=== PATIENT | male | born 1960 | race Caucasian/White ===

== ENCOUNTER → 2016-02-23 | Outpatient (CLI) | payer OTHER ==
--- NOTE | 2016-02-23 11:26 | EKG ---
[address] [address] Measurements Intervals [place] Rate: 71 P: 73 ND: 180 QRS: 32 QRSD: 111 T: 69 QT: 419 QTc: 441 Interpretive Statements SINUS RHYTHM INTRAVENTRICULAR CONDUCTION DELAY No previous ECG available for comparison Electronically Signed On 02-23-16 17:57:22 MST by Daniel Jeff [email or web address]
[2016-02-23 11:40] LABS: HEMATOCRIT 41.6 % (42.0-52.0); HEMOGLOBIN 14.3 g/dL (14.0-18.0); MEAN CORPUSCULAR HEMOGLOBIN 31.3 PG (27-31); MEAN CORPUSCULAR HGB CONC 34.4 g/dL (33-37); MEAN PLATELET VOLUME 9.3 FL (7.4-12.2); RDW COEFFICIENT OF VARIATION 14.7 % (11.5-14.5); RED BLOOD COUNT 4.57 10^6/uL (4.70-6.10); WHITE BLOOD COUNT 5.71 10^3/uL (4.8-10.8)
[2016-02-23 11:46] LABS: BILIRUBIN,URINE NEGATIVE (NEG); CLARITY,URINE CLEAR (CLEAR); GLUCOSE, URINE (UA) NEGATIVE (NEG); LEUKOCYTE ESTERASE ,URINE TRACE (NEG); NITRATE,URINE NEGATIVE (NEG); OCCULT BLOOD,URINE NEGATIVE (NEG); PROTEIN,URINE NEGATIVE (NEG)
[2016-02-23 11:51] LABS: URINE SAMPLE TYPE VOIDED SPECIMEN
[2016-02-23 11:58] LABS: RBC,URINE 0-1 /hpf; SQUAMOUS EPITHELIAL CELL,UR FEW; WBC,URINE 0-2
[2016-02-23 12:41] LABS: BLOOD UREA NITROGEN 5 mg/dL (7-22); BUN/CREATININE RATIO 7.14 (6-20); CALCIUM 9.1 mg/dL (8.7-10.7); CHLORIDE 101 meq/L (98-112); CREATININE 0.7 mg/dL (0.70-1.50); EST GLOMERULAR FILTRATION > 60 (>60 ml/min/1.73m(2)); GLUCOSE 113 mg/dL (78-110); POTASSIUM 3.6 meq/L (3.8-5.2); SODIUM 137 meq/L (135-145)
== END ==
LOC: EKG 11:19
PROVIDERS: ATTEND Orthopaedic Surgery
DX: Z01.812 Encounter for preprocedural laboratory examination (principal); Z01.810 Encounter for preprocedural cardiovascular examination; M17.12 Unilateral primary osteoarthritis, left knee; I45.89 Other specified conduction disorders; F17.210 Nicotine dependence, cigarettes, uncomplicated
CPT/HCPCS: 36415; 80048; 81001; 85027; 86850; 87641; 93005; 93010

== ENCOUNTER → 2016-03-08 | Outpatient (CLI) | payer OTHER ==
--- NOTE | 2016-03-08 09:34 | EKG ---
[address] [address] Measurements Intervals [place] Rate: 73 P: 78 WA: 163 QRS: 55 QRSD: 106 T: 76 QT: 406 QTc: 432 Interpretive Statements SINUS RHYTHM Compared to ECG 02/23/2016 11:26:51 Intraventricular conduction delay no longer present Electronically Signed On 03-08-16 10:36:12 MST by Daniel Jeff [email or web address]
--- NOTE | 2016-03-08 13:05 | DI ---
PA /LATERAL CHEST X-RAY, 03/08/2016 11:46 AM : Clinical History: Emphysema. Previous Exam: None at this facility. There is no acute soft tissue or bony abnormality. Heart size is normal. Lungs are clear. Mediastinal structures are normal. There are no pulmonary nodules. Reading: Normal chest x-ray.
== END ==
LOC: MOB EKG 09:23
PROVIDERS: ATTEND Specialist
DX: Z01.810 Encounter for preprocedural cardiovascular examination (principal); Z01.818 Encounter for other preprocedural examination; M17.12 Unilateral primary osteoarthritis, left knee; J43.8 Other emphysema; F17.210 Nicotine dependence, cigarettes, uncomplicated
CPT/HCPCS: 71020; 93005; 93010

== ENCOUNTER → 2016-03-21 | Outpatient (CLI) | payer OTHER ==
[2016-03-21 14:52] LABS: BILIRUBIN,URINE SMALL (NEG); CLARITY,URINE CLEAR (CLEAR); GLUCOSE, URINE (UA) NEGATIVE (NEG); LEUKOCYTE ESTERASE ,URINE SMALL (NEG); NITRATE,URINE NEGATIVE (NEG); OCCULT BLOOD,URINE NEGATIVE (NEG); PROTEIN,URINE NEGATIVE (NEG)
[2016-03-21 15:03] LABS: URINE SAMPLE TYPE VOIDED SPECIMEN
== END ==
LOC: LAB 14:32
PROVIDERS: ATTEND Orthopaedic Surgery
DX: Z01.812 Encounter for preprocedural laboratory examination (principal); M17.0 Bilateral primary osteoarthritis of knee; F17.210 Nicotine dependence, cigarettes, uncomplicated
CPT/HCPCS: 81001; 86850; 86900; 86901

== ENCOUNTER 2016-03-22 08:41 | Inpatient (IN) | payer OTHER ==
[2016-03-22] MEDS ORDERED: Sodium Chloride 0.9% 200 ML IV ONE (09:07)
[2016-03-22] MEDS ORDERED: ceFAZolin Inj 2gm (Premix) 50 ML IV ONE (09:07)
[2016-03-22] MEDS ORDERED: LIDOCAINE W/ SODIUM BICARB 0.5 ML SYR ONE ×2 (09:07→11:37)
[2016-03-22] MEDS ORDERED: Lactated Ringers 1,000 ML PRIMARY IV ONE ×4 (09:07→15:23)
[2016-03-22] MEDS ORDERED: TRANEXAMIC ACID 1,000 MG / 10 ML VIAL ONE (09:07)
[2016-03-22] MEDS ORDERED: IPRATROPIUM/ALBUTEROL SULFATE 3 ML NEB NEB ONE (11:00)
[2016-03-22] MEDS ORDERED: BACITRACIN 50,000 UNIT VIAL IRRIG ONE (11:00)
[2016-03-22] MEDS ORDERED: BUPivacaine Liposome/PF (Exparel) Inj 20ml vial INFIL ONE ×2 (11:00→13:19)
[2016-03-22] MEDS ORDERED: Sodium Chloride 0.9% vial 60 ML ONE (11:00)
[2016-03-22] MEDS ORDERED: Sodium Chloride 0.9% 500 ML ONE (11:07)
[2016-03-22] MEDS ORDERED: LIDOCAINE 2%/ EPI 1:200,000 - 20 ML VIAL ONE (11:24)
[2016-03-22] MEDS ORDERED: BUPivacaine Inj 0.5% PF (5mg/ml) 30ml vial ONE (11:25)
[2016-03-22] MEDS ORDERED: DEXAMETHASONE SOD PHOSPHATE 4 MG/1 ML VIAL ONE (11:25)
[2016-03-22] MEDS ORDERED: MIDAZOLAM 5 MG/1 ML ONE ×2 (11:25→11:37)
[2016-03-22] MEDS ORDERED: fentaNYL Inj 250 MCG/5 ML VIAL ONE (11:25)
[2016-03-22] MEDS ORDERED: LIDOCAINE MPF 2% - 5 ML (20 MG/1 ML) ONE (11:50)
--- NOTE | 2016-03-22 11:55 | CRNA.PROCE ---
Nerve Block Documentation - - Type of Nerve Block Used: Left Sciatic Nerve Block Sedation Used - Enter Amount in Comment Field: Midazolam (mg): Yes (5mg), Fentanyl (mcg): Yes (50mcg) Skin Prep Used: ChloroPrep Draped: No Technique: Nerve Stimulator Nerve Block Needle Used: 80 mm ProBlk II Stimulation Hz: 2 Stimulation Staring mA: 1.4 Stimulation Ending mA: 0.44 Local Anesthetic - Enter Amt in Comment Field: 0.5 % Bupivacaine Plain (mL): Yes (15ml), 2 % Xylocaine with Epinephrine 1:200,000 (mL): Yes (10ml) Additives to Nerve Blocks: Dexamethasone (mL): Yes (4mg(1ml))
--- NOTE | 2016-03-22 12:00 | CRNA.PROCE ---
Nerve Block Documentation - - Type of Nerve Block Used: Left Femoral Nerve Block Position for Nerve Block: Supine Moniters Used During Block: EKG, SPO2, NIBP Sedation Used - Enter Amount in Comment Field: Fentanyl (mcg): Yes (50mcg) Skin Prep Used: ChloroPrep Draped: No Technique: Nerve Stimulator Nerve Block Needle Used: 40 mm ProBlk II Stimulation Hz: 2 Stimulation Staring mA: 1.2 Stimulation Ending mA: 0.44 Local Anesthetic - Enter Amt in Comment Field: 0.5 % Bupivacaine Plain (mL): Yes (15ml), 2 % Xylocaine with Epinephrine 1:200,000 (mL): Yes (10ml) Additives to Nerve Blocks: Dexamethasone (mL): Yes (4mg(1ml))
[2016-03-22] MEDS ORDERED: Ketorolac Inj 30 MG, Morphine Inj 5 MG, BUPivacaine Inj 0.25% PF 150 MG SPLASH ONE ×3 (12:45)
[2016-03-22] MEDS ORDERED: HYDROmorphone 2 MG/1 ML ONE (14:09)
[2016-03-22] MEDS ORDERED: NORMAL SALINE 10 ML SYRINGE FLUSH IVP PRN ×2 (15:41→17:47)
[2016-03-22] MEDS ORDERED: fentaNYL Inj 100 MCG/2 ML VIAL IVP PRN (15:41)
[2016-03-22] MEDS ORDERED: HYDROmorphone 2 MG/1 ML IVP PRN (15:41)
[2016-03-22] MEDS ORDERED: Nalbuphine Inj 20 MG/ML Ampule IVP PRN (15:41)
[2016-03-22] MEDS ORDERED: ONDANSETRON 4 MG/2 ML VIAL IVP PRN ×2 (15:41→17:47)
[2016-03-22] MEDS ORDERED: Lactated Ringers 1,000 ML PRIMARY IV SCH (15:45)
[2016-03-22] MEDS ORDERED: ALBUTEROL SULFATE 8.5 GM HFA INHALER INH PRN (17:47)
[2016-03-22] MEDS ORDERED: MORPHINE SULFATE 2 MG/1 ML IVP PRN (17:47)
[2016-03-22] MEDS ORDERED: MORPHINE SULFATE 10 MG/1 ML IV PRN (17:59)
[2016-03-22] MEDS ORDERED: MORPHINE SULFATE 4 MG/1 ML IV PRN (17:59)
[2016-03-22] MEDS ORDERED: MORPHINE SULFATE 2 MG/1 ML IV PRN (17:59)
--- NOTE | 2016-03-22 18:15 | CONSULT ---
Consult Note - Consult Consult Date: 03/22/16 Reason for Consult: PostOp Consulation : Ortho Primary Care Provider: [facility] - History of Present Illness History of Present Illness: This is a 55 years old male with medical history significant for history of COPD on oxygen at night, history of hepatitis C, osteoarthritis and hypothyroidism who came into the hospital to have surgery and had the surgery done by Dr. Miller on his left knee today. Hospitalist service were consulted for management of medical issues. Patient is denying symptoms there is no chest pain no nausea , little short of breath. No knee pain. Past Medical History Medical History: 1. Hypothyroidism. 2. COPD on oxygen at night. 3. Osteoarthritis. 4. History of hepatitis C Family History: Reviewed an Not Pertinent Past Social History: Used to drink, continue to smoke, smokes marijuana Tobacco Use: Current Every Day Smoker Substance Use Type: Marijuana Alcohol Use: Sober Review of Systems - Review of Systems All Systems: Reviewed & No Additional Complaints Except as Stated Medication / Allergies Home Medications: Home Medications Medication Instructions Recorded Confirmed Type Albuterol Neb Soln 0.021% 1 unit NEB BID unit 10/15/14 03/22/16 History Oxygen (O2) 1 l INH DAILY #2 unit 10/15/14 03/22/16 History Tiotropium [place] [Spiriva] 1 puff INH DAILY inh 10/15/14 03/22/16 History Cyclobenzaprine HCl [Flexeril] 10 mg PO QID 11/11/14 03/22/16 History Albuterol Sulfate [Ventolin Hfa] 1 - 2 puff INH PRN puff 07/15/15 03/22/16 History Levothyroxine Sodium 1 tab PO DAILY tab 07/15/15 03/22/16 History Mirtazapine [Remeron] 1 tab PO QHS tab 07/15/15 03/22/16 History Erythromycin Base [Erythromycin] 1 tab-cap PO TID #21 tab 03/08/16 03/21/16 Clinic Gabapentin 1 tab PO TID tab 03/08/16 03/22/16 History Tramadol HCl 1 tab PO Q8H PRN #50 tab 03/09/16 03/22/16 Clinic Allergies/Adverse Reactions: Allergies Allergy/AdvReac Type Severity Reaction Status Date / Time No Known Allergies Allergy Verified 03/23/16 06:28 Exam - Vitals Vital Signs: Vital Signs Temperature 97.8 F Temperature Source Temporal Artery Scan Pulse Rate [Pulse Oximeter] 86 Pulse Rate 90 Respiratory Rate 16 Blood Pressure [Right Arm] 141/93 Blood Pressure 149/83 Pulse Ox 94 Oxygen Flow Rate 3 Oxygen Flow Rate 4 Oxygen Delivery Method Nasal Cannula Height 6 ft 4 in Weight 178 lb - General General Appearance: POSITIVE: No Acute Distress, Thin - Head Head Exam: POSITIVE: Normal Inspection, Atraumatic - Eye Eye Exam: POSITIVE: Normal Appearance - ENT ENT Exam: POSITIVE: Normal Exam - Neck Neck Exam: POSITIVE: Normal Inspection - Respiratory Additional Respiratory Exam Details: Few expiratory wheezes. - Cardiovascular Cardiovascular Exam: POSITIVE: RRR - GI/Abdominal GI/Abdominal Exam: POSITIVE: Normal Bowel Sounds, Non Tender, Non Distended, Soft - Rectal Rectal Exam: POSITIVE: Deferred - External Exam: POSITIVE: Deferred - Extremities Additional Extremities Exam Details: Dressing applied to left knee - Back Back Exam: POSITIVE: Normal Inspection - Neurological Neurological Exam: POSITIVE: Alert - Psychiatric Psychiatric Exam: POSITIVE: Normal Mood - Integumentary Integumentary Exam: POSITIVE: Normal Color Results - Labs CBC and BMP: 03/23/16 05:43 03/23/16 05:43 Assessment and Plan - Patient Problems (1) S/P left unicompartmental knee replacement Current Visit: Yes Status: Acute Comment: Pain medication is written for him, PT and OT consulted. For DVT prophylaxis he will be on Lovenox. (2) Hypothyroidism Current Visit: Yes Status: Acute Comment: Same med (3) COPD (chronic obstructive pulmonary disease) Current Visit: Yes Status: Acute Comment: Continue his inhalers
[2016-03-22] MEDS: Lactated Ringers 1,000 ML PRIMARY IV SCH (18:17)
[2016-03-22] MEDS: CYCLOBENZAPRINE 10 MG TABLET PO SCH ×2 (18:47→20:53)
[2016-03-22] MEDS ORDERED: ALBUTEROL SULFATE 0.63 MG/3 ML NEB SCH (19:00)
[2016-03-22] MEDS: NICOTINE 21 MG /DAY PATCH TRANSDERM SCH (19:18)
[2016-03-22] MEDS: DOCUSATE 100 MG CAPSULE PO SCH (20:39)
[2016-03-22] MEDS: Mirtazapine Tab 15 MG TAB PO SCH (20:40)
[2016-03-22] MEDS: GABAPENTIN 300 MG CAPSULE PO SCH (20:40)
[2016-03-22] MEDS: ceFAZolin Inj 2gm (Premix) 2 GM in Dextrose 1 BAG IV SCH (20:41)
[2016-03-22] MEDS: ENOXAPARIN SODIUM 30 MG/0.3 ML SYRINGE SUBCUT SCH (20:41)
--- NOTE | 2016-03-22 21:21 | ORTHO.PROG ---
Last Taken Vital Signs: Vital Signs - Last Taken Temperature 97.8 F 03/22/16 20:13 Pulse Rate 68 03/22/16 20:13 Respiratory Rate 16 03/22/16 20:13 Blood Pressure 151/95 03/22/16 20:13 Pulse Ox 95 03/22/16 20:13 Subjective: Patient status post left unicompartmental knee replacement doing well no pain block is still in place patient sitting and edge of bed had tried to stand up and fell back into the bed. Objective: Dressing is clean and dry there is no active motor good pulses brisk refill. No sensory or active motor in the lower extremity on the left Intake and Output - 8hrs 03/21/16 03/22/16 03/22/16 03/22/16 21:59 05:59 13:59 21:59 Intake: IV 2200 800 Output: Output, Urine Amount 325 125 Output, Estimated Blood 75 Loss Amount Other: Weight 80.739 kg 80.739 kg Weight Measurement Method Standing Scale Assessment: Left unicompartmental knee replacement Plan: Pain control is doing well with the femoral and sciatic nerve blocks, absolutely no weightbearing on the left leg when he is op mobilizing he needs to have a knee immobilizer in place and maximum assistance Pneumatic sequentials tonight and start Lovenox in a.m.
[2016-03-22] MEDS: HYDROcodone-APAP 10 MG-325 MG TABLET PO PRN (23:35)
[2016-03-23] MEDS: ceFAZolin Inj 2gm (Premix) 2 GM in Dextrose 1 BAG IV SCH (05:29)
[2016-03-23] MEDS: LEVOTHYROXINE 75 MCG TABLET PO SCH (06:02)
[2016-03-23] MEDS: Lactated Ringers 1,000 ML PRIMARY IV SCH (06:30)
[2016-03-23 06:37] LABS: HEMATOCRIT 37.5 % (42.0-52.0); HEMOGLOBIN 12.7 g/dL (14.0-18.0); MEAN CORPUSCULAR HEMOGLOBIN 30.9 PG (27-31); MEAN CORPUSCULAR HGB CONC 33.9 g/dL (33-37); MEAN PLATELET VOLUME 9.7 FL (7.4-12.2); RDW COEFFICIENT OF VARIATION 14.2 % (11.5-14.5); RED BLOOD COUNT 4.11 10^6/uL (4.70-6.10); WHITE BLOOD COUNT 9.01 10^3/uL (4.8-10.8)
[2016-03-23 06:56] LABS: BLOOD UREA NITROGEN 8 mg/dL (7-22); BUN/CREATININE RATIO 11.42 (6-20); CALCIUM 8.7 mg/dL (8.7-10.7); CHLORIDE 105 meq/L (98-112); CREATININE 0.7 mg/dL (0.70-1.50); EST GLOMERULAR FILTRATION > 60 (>60 ml/min/1.73m(2)); GLUCOSE 98 mg/dL (78-110); POTASSIUM 4.3 meq/L (3.8-5.2); SODIUM 138 meq/L (135-145)
[2016-03-23] MEDS: ALBUTEROL SULFATE 2.5 MG/3 ML NEB SCH (06:56)
[2016-03-23] MEDS: TIOTROPIUM BROMIDE 18 MCG CAPSULE INH SCH (06:57)
--- NOTE | 2016-03-23 07:41 | ORTHO.PROG ---
Last Taken Vital Signs: Vital Signs - Last Taken Temperature 97.7 F 03/23/16 05:00 Pulse Rate 76 03/23/16 05:00 Respiratory Rate 20 03/23/16 05:00 Blood Pressure 130/87 03/23/16 05:00 Pulse Ox 92 03/23/16 05:00 Subjective: Doing well this morning no pain Objective: Left leg no active motion block still in place. Good pulses brisk refill dressing clean and dry. Intake and Output - 8hrs 03/22/16 03/22/16 03/23/16 03/23/16 13:59 21:59 05:59 13:59 Intake: IV 2200 800 1110 Intake Oral Amount 100 Output: Output, Urinary Catheter 500 Amount Output, Urine Amount 325 125 Output, Estimated Blood 75 Loss Amount Other: Weight 80.739 kg 80.739 kg Weight Measurement Method Standing Scale Laboratory Results 03/23/16 Range/Units 05:43 WBC 9.01 (4.8-10.8) 10^3/uL RBC 4.11 L (4.70-6.10) 10^6/uL Hgb 12.7 L (14.0-18.0) g/dL Hct 37.5 L (42.0-52.0) % MCV 91.2 H (80-90) FL MCH 30.9 (27-31) PG MCHC 33.9 (33-37) g/dL RDW Std Deviation 46.0 (39-50) fL RDW Coeff of Mansi 14.2 (11.5-14.5) % Plt Count 125 L (140-350) 10*3/uL MPV 9.7 (7.4-12.2) FL Sodium 138 (135-145) meq/L Potassium 4.3 (3.8-5.2) meq/L Chloride 105 (98-112) meq/L Carbon Dioxide 28 (23-33) meq/L Anion Gap 5 (5-20) BUN 8 (7-22) mg/dL Creatinine 0.7 (0.70-1.50) mg/dL Estimated GFR > 60 (>60 ml/min/1.73m(2)) BUN/Creatinine Ratio 11.42 (6-20) Glucose 98 (78-110) mg/dL Calculated Osmolality 283.0 (267-292) mOsm/kg Calcium 8.7 (8.7-10.7) mg/dL Assessment: Status post left unicompartmental knee replacement doing well Plan: Patient will continue with DVT prophylaxis with enoxaparin, begin physical therapy today but to be extremely careful since his sciatic and femoral nerve block are in place. Pain control
[2016-03-23] MEDS: ENOXAPARIN SODIUM 30 MG/0.3 ML SYRINGE SUBCUT SCH ×2 (08:10→20:44)
[2016-03-23] MEDS: GABAPENTIN 300 MG CAPSULE PO SCH ×3 (08:11→20:44)
[2016-03-23] MEDS: DOCUSATE 100 MG CAPSULE PO SCH ×2 (08:11→20:44)
[2016-03-23] MEDS: CYCLOBENZAPRINE 10 MG TABLET PO SCH ×4 (08:11→20:44)
[2016-03-23] MEDS: HYDROcodone-APAP 10 MG-325 MG TABLET PO PRN ×3 (08:12→18:52)
[2016-03-23] MEDS ORDERED: OXYGEN INH SCH (09:00)
[2016-03-23] MEDS ORDERED: ERYTHROMYCIN 250 MG PO SCH (09:00)
--- NOTE | 2016-03-23 09:37 | DI ---
XR KNEE 1 OR 2 VWS,03/22/2016 5:02 PM: Clinical History: Left knee osteoarthritis. Previous Exam: January 25, 2016 Findings: AP and lateral views of the left knee are obtained, and demonstrate postsurgical changes consistent w ith a left medial compartment hemiarthroplasty. There is some free air noted within the suprapatellar bursa and the knee joint effusion. Overlying bandaging is noted as well. Impression: Status post left medial hemiarthroplasty.
--- NOTE | 2016-03-23 12:36 | CRNA.PROGR ---
Anesthesia Note Anesthesia Progress Note: Post OP Anesthesia Note Pt is sitting up in chair at bedside. He has been up to restroom, cedillo is dc' d and he has no problems voiding. He is tolerating a regular diet. He denies any residual issues of anesthetic. Current VS are stable. Vital Signs (Last 8 hours) Temp Pulse Resp BP Pulse Ox 03/23/16 11:32 98.2 F 102 H 20 139/84 91 03/23/16 07:48 98.5 F 92 18 143/96 90 03/23/16 05:00 97.7 F 76 20 130/87 92
--- NOTE | 2016-03-23 12:49 | PDOC(PROG) ---
Date and Time of Service: 03/23/2016 12:48 PM Interval History: Subjective Patient feels better pain seems to be controlled denying symptoms. Objective : Data - Labs CBC and BMP: 03/23/16 05:43 03/23/16 05:43 Labs - Last 24 Hours: Laboratory Results 03/23/16 Range/Units 05:43 WBC 9.01 (4.8-10.8) 10^3/uL RBC 4.11 L (4.70-6.10) 10^6/uL Hgb 12.7 L (14.0-18.0) g/dL Hct 37.5 L (42.0-52.0) % MCV 91.2 H (80-90) FL MCH 30.9 (27-31) PG MCHC 33.9 (33-37) g/dL RDW Std Deviation 46.0 (39-50) fL RDW Coeff of Mansi 14.2 (11.5-14.5) % Plt Count 125 L (140-350) 10*3/uL MPV 9.7 (7.4-12.2) FL Sodium 138 (135-145) meq/L Potassium 4.3 (3.8-5.2) meq/L Chloride 105 (98-112) meq/L Carbon Dioxide 28 (23-33) meq/L Anion Gap 5 (5-20) BUN 8 (7-22) mg/dL Creatinine 0.7 (0.70-1.50) mg/dL Estimated GFR > 60 (>60 ml/min/1.73m(2)) BUN/Creatinine Ratio 11.42 (6-20) Glucose 98 (78-110) mg/dL Calculated Osmolality 283.0 (267-292) mOsm/kg Calcium 8.7 (8.7-10.7) mg/dL Objective : Exam - General General Appearance: No Acute Distress, Cooperative - Head Head Exam: Normal Inspection - Eye Eye Exam: Normal Appearance - ENT ENT Exam: Normal Exam - Neck Neck Exam: Normal Inspection - Respiratory Respiratory Exam: Clear to Auscultation - Bilaterally - Cardiovascular Cardiovascular Exam: RRR - GI/Abdominal GI/Abdominal Exam: Normal Bowel Sounds, Non Tender, Non Distended, Soft - Rectal Rectal Exam: Deferred - Extremities Additional Extremities Exam Details: Dressing applied to the left knee - Back Back Exam: Normal Inspection - Neurological Neurological Exam: Alert, Oriented x 3, CN II-XII Intact - Psychiatric Psychiatric Exam: Normal Affect - Integumentary Integumentary Exam: Normal Color Assessment and Plan - Patient Problems (1) S/P left unicompartmental knee replacement Current Visit: Yes Status: Acute Comment: Continue PT and OT, for DVT prophylaxis he is on Lovenox (2) Hypothyroidism Current Visit: Yes Status: Acute Comment: Same med (3) COPD (chronic obstructive pulmonary disease) Current Visit: Yes Status: Acute Comment: Same medications
[2016-03-23] MEDS: NICOTINE 21 MG /DAY PATCH TRANSDERM SCH (18:53)
[2016-03-23] MEDS ORDERED: Patch Removal PATCH TRANSDERM SCH (19:00)
[2016-03-23] MEDS: Mirtazapine Tab 15 MG TAB PO SCH (20:44)
[2016-03-24] MEDS: HYDROcodone-APAP 10 MG-325 MG TABLET PO PRN ×3 (01:52→13:16)
[2016-03-24 05:00] VITALS: RESP 18
[2016-03-24] MEDS: LEVOTHYROXINE 75 MCG TABLET PO SCH (06:09)
[2016-03-24 06:20] LABS: HEMATOCRIT 32.1 % (42.0-52.0); HEMOGLOBIN 10.7 g/dL (14.0-18.0); MEAN CORPUSCULAR HEMOGLOBIN 30.6 PG (27-31); MEAN CORPUSCULAR HGB CONC 33.3 g/dL (33-37); MEAN PLATELET VOLUME 9.7 FL (7.4-12.2); RDW COEFFICIENT OF VARIATION 14.4 % (11.5-14.5); RED BLOOD COUNT 3.5 10^6/uL (4.70-6.10); WHITE BLOOD COUNT 5.54 10^3/uL (4.8-10.8)
[2016-03-24] MEDS: TIOTROPIUM BROMIDE 18 MCG CAPSULE INH SCH (06:27)
[2016-03-24] MEDS: ALBUTEROL SULFATE 2.5 MG/3 ML NEB SCH (06:27)
[2016-03-24 06:39] LABS: BLOOD UREA NITROGEN 10 mg/dL (7-22); CALCIUM 8.2 mg/dL (8.7-10.7); CHLORIDE 108 meq/L (98-112); CREATININE 0.8 mg/dL (0.70-1.50); EST GLOMERULAR FILTRATION > 60 (>60 ml/min/1.73m(2)); GLUCOSE 89 mg/dL (78-110); POTASSIUM 3.8 meq/L (3.8-5.2); SODIUM 140 meq/L (135-145)
--- NOTE | 2016-03-24 07:46 | ORTHO.PROG ---
Last Taken Vital Signs: Vital Signs - Last Taken Temperature 98.4 F 03/24/16 06:44 Pulse Rate 90 03/24/16 06:44 Respiratory Rate 18 03/24/16 06:44 Blood Pressure 133/64 03/24/16 06:44 Pulse Ox 90 03/24/16 06:44 Subjective: Patient doing well this morning good pain control block is wearing off almost completely worn off Objective: Examination shows the incision is clean and dry block has worn off where he has good eversion dorsiflexion plantar flexion of the foot. Sensory exam seems regarding lower extremity knee motion is still a little limited. Intake and Output - 8hrs 03/23/16 03/23/16 03/24/16 03/24/16 13:59 21:59 05:59 13:59 Intake: Intake Oral Amount 240 350 500 620 Output: Output, Urine Amount 500 500 450 Other: Percent Meal Consumed 100% 100% 75% Weight 83.325 kg Weight Measurement Method Standing Scale Laboratory Results 03/24/16 Range/Units 05:36 WBC 5.54 (4.8-10.8) 10^3/uL RBC 3.50 L (4.70-6.10) 10^6/uL Hgb 10.7 L (14.0-18.0) g/dL Hct 32.1 L (42.0-52.0) % MCV 91.7 H (80-90) FL MCH 30.6 (27-31) PG MCHC 33.3 (33-37) g/dL RDW Std Deviation 46.6 (39-50) fL RDW Coeff of Mansi 14.4 (11.5-14.5) % Plt Count 100 L (140-350) 10*3/uL MPV 9.7 (7.4-12.2) FL Sodium 140 (135-145) meq/L Potassium 3.8 (3.8-5.2) meq/L Chloride 108 (98-112) meq/L Carbon Dioxide 28 (23-33) meq/L Anion Gap 4 L (5-20) BUN 10 (7-22) mg/dL Creatinine 0.8 (0.70-1.50) mg/dL Estimated GFR > 60 (>60 ml/min/1.73m(2)) BUN/Creatinine Ratio 12.50 (6-20) Glucose 89 (78-110) mg/dL Calculated Osmolality 287.0 (267-292) mOsm/kg Calcium 8.2 L (8.7-10.7) mg/dL Assessment: Status post left unicompartmental knee replacement Anemia Plan: Continue with physical therapy and occupational therapy. Pain control seems to be good DVT prophylaxis currently with Lovenox I will switches are also 1 patient goes home.
[2016-03-24] MEDS: GABAPENTIN 300 MG CAPSULE PO SCH (08:14)
[2016-03-24] MEDS: DOCUSATE 100 MG CAPSULE PO SCH (08:14)
[2016-03-24] MEDS: CYCLOBENZAPRINE 10 MG TABLET PO SCH ×2 (08:14→13:16)
[2016-03-24] MEDS: ENOXAPARIN SODIUM 30 MG/0.3 ML SYRINGE SUBCUT SCH (08:14)
--- NOTE | 2016-03-24 10:07 | PT.PROG ---
Progress Note Progress Note: S: Pt reports that he has a constant "annoying" posterior knee "pull". States things are not unbearable but is noticeable. O: Treatment consisted of: 20' MH to L knee followed by micro massage, HS/QS, SLR, hip abduction, SAQ all 0# x10, STS 10x, 3# box, negotiated 5 staires with 1 HR and walker with only S. Pt's incision site was clean, min drainage with [id number] blister at the 7 O'clock position starting at inferior portion of incision. A: Pt tolerated treatment well, able to complete all activities with only S, no c/o pain. P: Continue POC to address established goals and objectives.
[2016-03-24 11:12] VITALS: TEMP 98.2
--- NOTE | 2016-03-24 13:40 | DCSUMMARY ---
Hospitalization Summary Admit Date: 03/22/16 Discharge Date: 03/24/16 Hospital Course: Discharge instruction 1. Status post left unicompartmental knee replacement 2. History of hepatitis C 3. History of COPD 4. History of hypothyroidism 5. Mild thrombocytopenia Hospital course This is a 55 years old male with medical history significant for history of COPD on oxygen at night, history of hepatitis C, osteoarthritis and hypothyroidism who came into the hospital to have surgery and had left unicompartmental knee replacement done by Dr. Miller. The hospitalist service were consulted for management of his medical issues. We kept him on his usual medications. Postoperative course was uneventful he started physical therapy. On the day of discharge Dr. Miller suggested to discharge him after physical therapy and he was cleared by them so he was discharged. Dr. Grace put him on Xarelto and he wrote prescription for pain medications. Patient will follow-up with Dr. Miller postdischarge. Patient did have mild thrombocytopenia suspect this may be due to his underlying hepatitis C. Laboratory Results 03/23/16 03/24/16 Range/Units 05:43 05:36 WBC 9.01 5.54 (4.8-10.8) 10^3/uL RBC 4.11 L 3.50 L (4.70-6.10) 10^6/uL Hgb 12.7 L 10.7 L (14.0-18.0) g/dL Hct 37.5 L 32.1 L (42.0-52.0) % MCV 91.2 H 91.7 H (80-90) FL MCH 30.9 30.6 (27-31) PG MCHC 33.9 33.3 (33-37) g/dL RDW Std Deviation 46.0 46.6 (39-50) fL RDW Coeff of Mansi 14.2 14.4 (11.5-14.5) % Plt Count 125 L 100 L (140-350) 10*3/uL MPV 9.7 9.7 (7.4-12.2) FL Sodium 138 140 (135-145) meq/L Potassium 4.3 3.8 (3.8-5.2) meq/L Chloride 105 108 (98-112) meq/L Carbon Dioxide 28 28 (23-33) meq/L Anion Gap 5 4 L (5-20) BUN 8 10 (7-22) mg/dL Creatinine 0.7 0.8 (0.70-1.50) mg/dL Estimated GFR > 60 > 60 (>60 ml/min/1.73m(2)) BUN/Creatinine Ratio 11.42 12.50 (6-20) Glucose 98 89 (78-110) mg/dL Calculated Osmolality 283.0 287.0 (267-292) mOsm/kg Calcium 8.7 8.2 L (8.7-10.7) mg/dL Discharge instruction Diet regular Activity as started Medications Home Medications Home Medications Albuterol Neb Soln 0.021% 1 unit NEB BID unit 10/15/14 [History Confirmed 03/22] Oxygen (O2) 1 l INH DAILY #2 unit 10/15/14 [History Confirmed 03/22/16] Tiotropium [place] [Spiriva] 1 puff INH DAILY inh 10/15/14 [History Confirmed 03/22/16] Cyclobenzaprine HCl [Flexeril] 10 mg PO QID 11/11/14 [History Confirmed 03/22/16 ] Albuterol Sulfate [Ventolin Hfa] 1 - 2 puff INH PRN puff 07/15/15 [History Confirmed 03/22/16] Levothyroxine Sodium 1 tab PO DAILY tab 07/15/15 [History Confirmed 03/22/16] Mirtazapine [Remeron] 1 tab PO QHS tab 07/15/15 [History Confirmed 03/22/16] Erythromycin Base [Erythromycin] 1 tab-cap PO TID #21 tab 03/08/16 [Clinic Confirmed 03/21/16] Gabapentin 1 tab PO TID tab 03/08/16 [History Confirmed 03/22/16] Tramadol HCl 1 tab PO Q8H PRN #50 tab 03/09/16 [Clinic Confirmed 03/22/16] HYDROcodone/APAP 10/325 Tab [[place] 10/325 Tab] 1 - 2 tab PO Q4H PRN #1 tab 10/30 [Rx] Xarelto 10 mg daily Condition at discharge was stable for discharge Follow-up with the Dr. Miller as scheduled, with PCP 1-2 weeks Exam - Vitals Vital Signs: Vital Signs Temperature 98.2 F Temperature Source Temporal Artery Scan Pulse Rate [Pulse Oximeter] 97 Pulse Rate 90 Respiratory Rate 18 Blood Pressure [Right Arm] 149/85 Blood Pressure 149/83 Pulse Ox 92 Oxygen Flow Rate 1 Oxygen Flow Rate 4 Oxygen Delivery Method Room Air Height 6 ft 4 in Weight 183 lb - General General Appearance: POSITIVE: No Acute Distress, Thin - Head Head Exam: POSITIVE: Normal Inspection - Eye Eye Exam: POSITIVE: Normal Appearance - ENT ENT Exam: POSITIVE: Normal Exam - Neck Neck Exam: POSITIVE: Normal Inspection - Respiratory Respiratory Exam: POSITIVE: Clear to Auscultation - Bilaterally - Cardiovascular Cardiovascular Exam: POSITIVE: RRR Patient Problems - Patient Problem List (1) S/P left unicompartmental knee replacement Status: Acute (2) Hypothyroidism Status: Acute (3) COPD (chronic obstructive pulmonary disease) Status: Acute
--- NOTE | 2016-03-25 15:40 | PTI REPORT ---
Thank you for the referral of Joselito Sampson. He was seen on 03/23/16 for an inpatient evaluation status post left knee shantel arthroplasty. SUBJECTIVE: The patient is a 55-year-old male who was referred by Dr. Miller secondary to a shantel arthroplasty of the left knee. The patient states he lives in [place] with his sister. There are three steps to get in and out of his house. PAST MEDICAL HISTORY: Past medical history can be found in the patient's medical record. OBJECTIVE FINDINGS: General observations: The patient was in his room upon the therapist's arrival. He was alert and oriented x3. Pain: The patient rates his pain as a 6/10 on the verbal analog scale (0=no pain , 10=worst pain) but his foot is completely numb. Bed mobility: The patient requires assist of one to come from a supine to sit position due to nauseousness and numbness. Transfers: The patient requires assist of one to transfer from sit to stand due to numbness of the foot. Ambulation: The patient ambulated two or three steps to his chair. Range of motion: The patient demonstrated 80-85 degrees of knee flexion. ASSESSMENT: The patient's prognosis for rehab is great and his attitude is very good. Problem List: Pain in the left knee Decreased passive and active range of motion of the left knee Decreased strength in the left knee Short-Term Goals: To be met by discharge from inpatient: Patient will be able to transfer from bed to stand independently. Patient will be able to ambulate 100 feet with walker, weight-bearing as tolerated. Patient will be able to ascend and descend five stairs with walker, weight- bearing as tolerated. Patient will be instructed in a home exercise and stretching program. Long-Term Goals: To be met following discharge from inpatient: Patient will be seen by outpatient physical therapy. TREATMENT PLAN: Patient will be seen B.I.D during the week and one time per day over the weekend as an inpatient for pain relief modalities, transfers, ambulation, stairs, and ADLs. INITIAL TREATMENT: Treatment today consisted of the initial evaluation activities only. RENETTA
--- NOTE | 2016-03-25 15:49 | PT PM DAY ---
Diagnosis : Left Knee Jarad-Arthroplasty PM - Physical Therapy S: The patient says he still can't feel his foot and can't lift his leg. Other than that, he states he feels great. O: The patient ambulates through the hallway with walker and knee immobilizer on. The patient was then wheeled down to therapy where he received an application of moist heat pack x20 minutes including set up to the left knee. He performed therapeutic exercises and functional activities including quad sets, heel slides, straight leg raises, short arc quads, hip abduction/ adduction, sit to stands with knee immobilizer on, and box step ups on the #2 box. The patient then received manual therapy in the form of passive range of motion in knee flexion/extension and stretching of his lower extremity with some gentle rhythmic rotations and traction for pain relief. The patient then ambulated approximately 20 feet with walker and contact guard assist. The patient then performed the upper body ergometer x5 minutes. The patient then ambulated another approximately 20 feet with walker and contact guard assist. He was then wheeled back up to his room where he was left with call light within reach. A: The patient is very impulsive. He is younger, so he feels like he does not have to be as safe. He did require several verbal cues in order to transfer safely and use his walker correctly. His motion is excellent and he is getting good quad control back. P: Continue seeing patient BID during the week and one time per day over the weekend for transfers, ambulation, and range of motion/strengthening exercises. RENETTA
--- NOTE | 2016-03-25 16:02 | OTI REPORT ---
Thank you for the referral of Joselito Sampson. He was seen on 03/24/16 for an occupational therapy inpatient evaluation status post left knee shantel arthroplasty. SUBJECTIVE: The patient is a 55-year-old male who had a left knee shantel arthroplasty complete on Monday. The patient does live in [place] with his significant other in a trailer house. He states he does have a couple of stairs to get into his home, but once inside he has no stairs. He states he has a high rise toilet seat as well as a shower seat already installed in his shower. At this time the patient is on disability and is not working. The patient did report that he has poor shoulders. He states he does need surgery on the left shoulder again and he states his right shoulder is not great. PAST MEDICAL HISTORY: Past medical history can be found in the patient's medical record. OBJECTIVE FINDINGS: Range of motion: The patient demonstrates approximately 100 degrees of shoulder range of motion before he started feeling pain and a pinching sensation in the shoulder. Strength: The patient demonstrates upper extremity strength of 4/5. Bed mobility: The patient was able to complete bed mobility with mod independence with his knee immobilizer on. Activities of daily living: The patient was able to doff and don his sock mod independently. The patient states he would like a hospital nurse so that he can moss picker items off the floor easier. Transfers: The patient is able to transfer from sit to stand with mod independence; he was a little impulsive and fast with his movements; however, he does seem to handle it fairly well. Ambulation: The patient was able to ambulate approximately 100 feet before physical therapy services took over. ASSESSMENT: At this time the patient is completing all ADLs with mod independence. The patient was issued a hospital nurse and at this time he will be discharged from OT services. TREATMENT PLAN: Patient will be discharged from OT services at this time. INITIAL TREATMENT: Treatment today consisted of the initial evaluation activities only. RENETTA
== END 2016-03-24 13:26 | disposition home or self-care (01) | DRG 470 ==
LOC: OPS 08:41 → MED/SURG 17:40
PROVIDERS: ADMIT Orthopaedic Surgery; ATTEND Orthopaedic Surgery
PROC: 0SRD0L9 Replacement of Left Knee Joint with Medial Unicondylar Synthetic Substitute, Cemented, Open Approach (ICD-10-PCS; principal; 2016-03-22 13:00)
DX: M17.12 Unilateral primary osteoarthritis, left knee (principal); B18.2 Chronic viral hepatitis C; J44.9 Chronic obstructive pulmonary disease, unspecified; D69.6 Thrombocytopenia, unspecified; E03.8 Other specified hypothyroidism
CPT/HCPCS: 36415; 73560; 80048; 85027; 94640; 94761; 97010; 97110; 97116; 97140; 97162; 97165; 97530; A4216; J0690; J1100; J1170; J1650; J1885; J2001; J2250; J2270; J3010; J3490; J7040; J7050; J7120; J7620; S0020

== ENCOUNTER 2016-03-29 11:31 | Emergency (ER) | payer OTHER ==
[2016-03-29] MEDS ORDERED: Sodium Chloride 0.9% 1,000 ML PRIMARY IV ONE (11:45)
[2016-03-29] MEDS ORDERED: ONDANSETRON 4 MG/2 ML VIAL IVP ONE (11:45)
[2016-03-29] MEDS ORDERED: KETOROLAC 30 MG/1 ML VIAL IVP ONE (11:45)
[2016-03-29 11:54] VITALS: RESP 16; TEMP 98
--- NOTE | 2016-03-29 11:57 | PDOC ---
Lower Extremity Injury HPI - General Chief Complaint: Lower Extremity Problem/Injury Stated Complaint: LEFT KNEE SURGICAL INCISION PAIN/BLISTERING Date Seen by Provider: 03/29/16 Time Seen by Provider: 11:52 Source: POSITIVE: Patient Exam Limitations: POSITIVE: No limitations Nurse's Notes Reviewed & Considered: Yes - History of Present Illness Initial Comments: Patient comes in today with chief complaint of left knee pain. Patient had a partial left knee replacement done on March 22. On the he began to develop symptoms of increased swelling and pain with blister formation around the incision. He been discharged home on erythromycin. Keflex was added on March 25. Now he has increased swelling, erythema, heat, and exudate from his incisional wound as well as unroofed blisters on either side of the midline incision of his left knee. Presently he is complaining of intermittent chills and sweats but denies any fevers. He does have nausea but no vomiting. He is complaining of chronic shortness of breath but now has some left-sided chest pain. Denies any headache, changes in vision, sore throat, no cough. No hematuria or dysuria. Have you received a tetanus shot in the past 10 years?: No Body Location Affected: REPORTS: Lower Extremity (L) Timing: REPORTS: Gradual, Getting Worse Duration: <1 week Severity: Moderate Quality: REPORTS: "Pain", Throbbing Location at Time of Onset: REPORTS: Home Context of Injury: REPORTS: Incision Location of Injury: REPORTS: Knee (L) Modifying Factors: improves with: Walking, Movement, Rest Any Prior Injuries Related to Current Complaint?: No - Patient Home Medications Home Medications: Home Medications Albuterol Neb Soln 0.021% 1 unit NEB BID unit 10/15/14 Oxygen (O2) 1 l INH DAILY #2 unit 10/15/14 Tiotropium [place] [Spiriva] 1 puff INH DAILY inh 10/15/14 Cyclobenzaprine HCl [Flexeril] 10 mg PO QID 11/11/14 Albuterol Sulfate [Ventolin Hfa] 1 - 2 puff INH PRN puff 07/15/15 Levothyroxine Sodium 1 tab PO DAILY tab 07/15/15 Mirtazapine [Remeron] 1 tab PO QHS tab 07/15/15 Gabapentin 1 tab PO TID tab 03/08/16 HYDROcodone/APAP 10/325 Tab [[place] 10/325 Tab] 1 - 2 tab PO Q4H PRN #1 tab 10/30 Rivaroxaban [Xarelto] 1 tab PO QD #30 tab 03/24/16 - Patient Allergies Allergies/Adverse Reactions: Allergies Allergy/AdvReac Type Severity Reaction Status Date / Time Influenza Virus Vaccines Allergy Intermediate ITCHING Verified 03/29/16 11:56 TAPE Allergy Intermediate BURNED Uncoded 03/29/16 11:56 SKIN AND SLOUGHED OFF LIKE BURN Past Medical History - heen HEENT History: Cataracts Cardiovascular History: Denies History Respiratory History: COPD, Sleep Apnea, Home Oxygen Use Additional Respiratory History: 2 L O2 DURING THE DAY. 2.5L AT HS. PNEUMOTHORAX FOLLOWING LAST SHOULDER SURGERY- 2007 Gastrointestinal History: Hepatitis Additional Gastrointestinal History: HEP C CARRIER Genitourinary History: Denies History Endocrine History: Hypothyroidism Musculoskeletal History: Joint Pain, Osteoarthritis Prosthesis or Implant: No Additional Musculoskeletal History: LEFT KNEE PAIN Neurological History: Denies History Blood Disorders:  Additional Blood Disorders History: HEPATITIS C Psychiatric History: Denies History History of Sexually Transmitted Diseases: No Cancer History: Denies History History of MDRO: No History of Other Communicable Diseases: No Alcohol Use: Sober Substance Use Type: None Previous Surgical History: Yes Type / Date of Surgery: KNEE SCOPE X3/L KNEE SCOPE X2/ SHOULDER SCOPE// AFTER DISCHARGE FROM SHOULDER SCOPE PATIENT WAS READMITTED FOR SEVERAL DAYS FOR A COLLAPSED LUNG/APPENDIX/LEFT CATARACT Anesthesia Reactions: No Malignant Hyperthermia: No Significant Family History: Asthma, Cancer, COPD, Hypertension ROS - Limitations ROS Limitations: No Limitations Constitution: REPORTS: Chills, Diaphoresis Cardiovascular: REPORTS: Chest Pain Respiratory: REPORTS: Shortness Of Breath Neurological: REPORTS: Denies Neuro Symptoms Gastrointestinal: REPORTS: Nausea Endocrine: REPORTS: Denies Symptoms Musculoskeletal: REPORTS: Joint Pain, Lower Extremity Swelling, Pedal Edema Genitourinary: REPORTS: Denies Symptoms Eyes: REPORTS: Denies Symptoms ENT: REPORTS: Denies Symptoms Skin: REPORTS: Excessive Bruising Lympathic: REPORTS: Denies Lympathic Symptoms Immunologic: POSITIVE: Denies Symptoms Psychiatric: POSITIVE: Denies Psych Symptoms Lower Ext Complaint Exam - General Appearance General Appearance: POSITIVE: Alert, Cooperative, No Acute Distress, No Evidence of Trauma - Extremities Lower Extremity: POSITIVE: Soft Tissue Tenderness, Swelling, Ecchymosis, Erythema, Limited ROM Gait: POSITIVE: Gait not Tested d/t Pain Neurovascular/Tendon: POSITIVE: Sensation Normal, Motor Normal, No Vascular Compromise Skin: POSITIVE: Warm, Ecchymosis - HEENT HEENT: POSITIVE: Head Inspection Nml, Eyes Inspection Nml, Ears Inspection Nml, Nose Inspection Nml, PERRL, EOMI - Neck / Back Neck/Back: POSITIVE: Normal Inspection, Non-Tender - Respiratory / CVS Respiratory / CVS: POSITIVE: Chest Non Tender, No Ecchymosis, Breath Sounds Normal, No Respiratory Distress, Heart Sounds Normal, Regular Rate/Rhythm - Abdomen Abdomen: Soft: (All Quadrants), Normal Bowel Sounds: (All Quadrants), Denies Tenderness: (All Quadrants) Lower Ext Complaint Progress - Results Reviewed by me Xrays/CTs/US Reviewed by me: Yes Discussed with Radiologist: Yes Lab Results Reviewed: Yes Lab Results:: Laboratory Results 03/29/16 03/29/16 03/29/16 Range/Units 11:50 12:07 15:13 WBC 6.01 (4.8-10.8) 10^3/uL RBC 4.03 L (4.70-6.10) 10^6/uL Hgb 12.5 L (14.0-18.0) g/dL Hct 37.1 L (42.0-52.0) % MCV 92.1 H (80-90) FL MCH 31.0 (27-31) PG MCHC 33.7 (33-37) g/dL RDW Std Deviation 48.5 (39-50) fL RDW Coeff of Mansi 15.0 H (11.5-14.5) % Plt Count 194 (140-350) 10*3/uL MPV 8.9 (7.4-12.2) FL Immature Gran % (Auto) 0.2 (0-5) % Neut % (Auto) 49.0 L (50-80) % Lymph % (Auto) 36.8 (10-50) % [place] % (Auto) 10.5 (5-15) % Eos % (Auto) 2.7 (0-8) % Baso % (Auto) 0.8 (0-1) % Immature Gran # (Auto) 0.01 10*3/UL Neut # (Auto) 2.95 10*3/UL Lymph # (Auto) 2.21 10*3/uL [place] # (Auto) 0.63 (0.3-0.8) 10*3/UL Eos # (Auto) 0.16 10*3/UL Baso # (Auto) 0.05 10*3/UL WBC Morphology Comment Normal morphology (NORM) Plt Morphology Comment Normal morphology (NORM) RBC Morph Comment Normal morphology (NORM) ESR 13 (0-15) MM/HR VBG pH 7.43 H (7.32-7.42) VBG pCO2 37 L (45-55) mmHg VBG HCO3 25 (22-26) mmol/L VBG Base Excess 0 (-2-2) MMOL/L Sodium 139 (135-145) meq/L Potassium 4.2 (3.8-5.2) meq/L Chloride 102 (98-112) meq/L Carbon Dioxide 27 (23-33) meq/L Anion Gap 10 (5-20) BUN 6 L (7-22) mg/dL Creatinine 0.7 (0.70-1.50) mg/dL Estimated GFR > 60 (>60 ml/min/1.73m(2)) BUN/Creatinine Ratio 8.57 (6-20) Glucose 106 (78-110) mg/dL Calculated Osmolality 285.0 (267-292) mOsm/kg Lactic Acid 0.9 (0.70-2.10) MMOL/L Calcium 9.0 (8.7-10.7) mg/dL Magnesium 1.8 (1.6-2.4) mg/dL Total Bilirubin 0.8 (0.3-1.2) mg/dL AST 68 H (21-57) IU/L ALT 59 (21-72) IU/L Alkaline Phosphatase 92 (38-126) IU/L Troponin I < 0.012 (< 0.040) ng/mL C-Reactive Protein 1.2 H (0.0-0.9) mg/dL NT-Pro-B Natriuret Pep 312 H (0-125) PG/ML Total Protein 6.8 (6.1-8.0) g/dL Albumin 3.6 (3.5-4.8) g/dL Globulin 3.2 (2.50-4.10) g/dL Albumin/Globulin Ratio 1.10 L (1.3-2.0) mg/g - Patient's Progress Pain Medication Addressed: POSITIVE: Yes Re-Examine Time:: 16:42 Status: POSITIVE: Improved MDM / ED Course: Patient was evaluated, IV 100 with blood drawn and sent to lab for studies and radiographic examinations obtained of his left lower extremity. Findings: CT scan shows a large joint effusion cannot rule out infection, ultrasound reveals no DVT present. CBC shows normal white count. Assessment: Postoperative knee pain, reaction to Neosporin topical ointment. Patient was evaluated by Dr. Miller and the on-call orthopedic surgeon who was able to come down at approximately 1630 hrs. and examined the patient and will be following along. Patient is being seen at the [facility] tomorrow for wound care. Plan: Discharge home to follow up in clinic tomorrow. - Consult Counseled: POSITIVE: Patient, Family, RE: Lab Results, RE: Radiology Results, RE : DX, RE: Need for F/U Patient Care Time - Estimated PCT Patient Care Time (In Minutes): 45 Vital Signs - Recent Vital Signs Vital Signs: Vital Signs (Last 8 hours) Temp Pulse Resp BP Pulse Ox 03/29/16 11:33 98 F 84 16 124/84 93 - VS Reviewed Vital Signs Reviewed: Yes Discharge Clinical Impression: Postoperative pain, Topical medication dermatitis Discharge Disposition: Discharged to Home Condition: Stable Patient Instructions Given at Discharge: Contact Dermatitis (ED)
--- NOTE | 2016-03-29 11:59 | EKG ---
[address] [address] Measurements Intervals [place] Rate: 77 P: 77 [place]: 164 QRS: 64 QRSD: 108 T: 73 QT: 383 QTc: 415 Interpretive Statements SINUS RHYTHM Compared to ECG 03/08/2016 09:37:39 No significant change Electronically Signed On 03-29-16 13:10:42 MST by Daniel Jeff [email or web address]
[2016-03-29 12:05] LABS: BASOPHILS # (AUTO) 0.05 10*3/UL; BASOPHILS % (AUTO) 0.8 % (0-1); EOSINOPHILS % (AUTO) 2.7 % (0-8); HEMATOCRIT 37.1 % (42.0-52.0); HEMOGLOBIN 12.5 g/dL (14.0-18.0); IMM GRAN % (AUTO) 0.2 % (0-5); IMM GRAN# (AUTO) 0.01 10*3/UL; LYMPHOCYTES # (AUTO) 2.21 10*3/uL; LYMPHOCYTES % (AUTO) 36.8 % (10-50); MEAN CORPUSCULAR HGB CONC 33.7 g/dL (33-37); MEAN PLATELET VOLUME 8.9 FL (7.4-12.2); MONOCYTES # (AUTO) 0.63 10*3/UL (0.3-0.8); MONOCYTES % (AUTO) 10.5 % (5-15); NEUTROPHILS # (AUTO) 2.95 10*3/UL; RED BLOOD COUNT 4.03 10^6/uL (4.70-6.10); WHITE BLOOD COUNT 6.01 10^3/uL (4.8-10.8)
[2016-03-29 12:09] LABS: PLATELET MORPHOLOGY COMMENT NORMAL MORPHOLOGY (NORM)
[2016-03-29 12:15] LABS: ASPARTATE AMINO TRANSFERASE 68 IU/L (21-57); BILIRUBIN,TOTAL 0.8 mg/dL (0.3-1.2); BLOOD UREA NITROGEN 6 mg/dL (7-22); BUN/CREATININE RATIO 8.57 (6-20); CHLORIDE 102 meq/L (98-112); CREATININE 0.7 mg/dL (0.70-1.50); EST GLOMERULAR FILTRATION > 60 (>60 ml/min/1.73m(2)); GLUCOSE 106 mg/dL (78-110); LACTATE 0.9 MMOL/L (0.70-2.10); MAGNESIUM 1.8 mg/dL (1.6-2.4); POTASSIUM 4.2 meq/L (3.8-5.2); SODIUM 139 meq/L (135-145); TOTAL PROTEIN 6.8 g/dL (6.1-8.0)
--- NOTE | 2016-03-29 13:03 | DI ---
US UP/LOW EXT VEINS U/L OR LTD,03/29/2016 11:50 AM: Clinical History: Swelling and shortness of breath of the left lower extremity. Previous Exam: None at this facility. Findings: Multiple grayscale and color Doppler sonographic images are obtained through the left lower Jansen h e, and demonstrate complete coaptation upon graded compression throughout the deep veins. There is a knee joint effusion identified. There is normal respiratory variation and augmentation. Impression: 1. No evidence of deep venous thrombosis. 2. Knee joint effusion.
--- NOTE | 2016-03-29 13:58 | DI ---
CT LOWER EXTREMITY W/CONTRAST,03/29/2016 11:45 AM: Clinical History: Status post left knee hemiarthroplasty with chills and erythema. Previous Exam: None at this facility. Findings: Multiple helically acquired CT images are obtained through the left knee 60 seconds after the intrave nous administration of Isovue 300, and demonstrates a large knee joint effusion with some mild periph eral enhancement. There is no fracture identified. The femoral component and tibial components are intact. There is no hardware loosening. There is also some edema involving the subcutaneous fat with soft tissue swelling noted overlying the left knee. The major vascular structures are unremarkable. Impression: Large knee joint effusion with some minimal enhancement. Cannot rule out the possibility of an infect ed joint although there is no bony erosion. Recommend needle aspiration for further evaluation of the joint fluid.
== END 2016-03-29 17:02 | disposition home or self-care (01) ==
LOC: ER 11:31
DX: G89.18 Other acute postprocedural pain (principal); L24.89 Irritant contact dermatitis due to other agents; R06.02 Shortness of breath; R07.89 Other chest pain; R11.0 Nausea
CPT/HCPCS: 36415 ×2; 73701; 80053; 82803; 83605; 83735; 83880; 84484; 85025; 85652; 86140; 93005; 93010; 93971; 96374; 96375; 99283 ×2; J1885; J2405; J7030

== ENCOUNTER 2017-12-05 05:35 | Inpatient (IN) ==
[2017-12-05] MEDS ORDERED: Lactated Ringers 1,000 ML PRIMARY IV ONE ×2 (05:52→11:50)
[2017-12-05] MEDS ORDERED: ceFAZolin Inj 2gm (Premix) 2 GM/50 ML BAG IV ONE ×2 (05:52→06:00)
[2017-12-05] MEDS ORDERED: LIDOCAINE W/ SODIUM BICARB 0.5 ML SYR ONE (05:53)
[2017-12-05] MEDS ORDERED: Lactated Ringers 1,000 ML PRIMARY IV SCH ×2 (06:00→07:00)
[2017-12-05] MEDS ORDERED: Nasal Sanitizer POPSWAB ampule 3 AMP (Nozin) PREOP DOSE ENOS SCH (06:00)
[2017-12-05] MEDS ORDERED: BUPivacaine Liposome/PF (Exparel) Inj 20ml vial INFIL ONE ×2 (06:00→07:19)
[2017-12-05] MEDS ORDERED: Tranexamic Acid 1,000 MG in Sodium Chloride 0.9% 100 ML IV SCH (06:00)
[2017-12-05] MEDS ORDERED: LIDOCAINE W/ SODIUM BICARB 0.5 ML SYR SUBD ONE (06:00)
[2017-12-05] MEDS ORDERED: Ketorolac Inj 30 MG, Morphine Inj (Ortho Cocktail) 5 MG, BUPivacaine Inj 0.25% PF 150 MG SPLASH ONE ×3 (06:00)
[2017-12-05] MEDS ORDERED: IPRATROPIUM/ALBUTEROL SULFATE 3 ML NEB NEB PRN (06:51)
[2017-12-05] MEDS ORDERED: LIDOCAINE W/ SODIUM BICARB 0.5 ML SYR SUBD PRN (06:52)
[2017-12-05] MEDS ORDERED: fentaNYL Inj 100 MCG/2 ML VIAL IVP PRN (06:52)
[2017-12-05] MEDS ORDERED: ONDANSETRON 4 MG/2 ML VIAL IVP PRN ×2 (06:52→13:03)
[2017-12-05] MEDS ORDERED: Ondansetron ODT Tab 8 MG TAB PO PRN ×2 (06:52→13:03)
[2017-12-05] MEDS ORDERED: HYDROmorphone 2 MG/1 ML IVP PRN (06:52)
[2017-12-05] MEDS ORDERED: ATROPINE SULFATE 0.4 MG/1 ML VIAL IVP PRN (06:52)
--- NOTE | 2017-12-05 06:54 | CRNA.PROGR ---
Anesthesia Time - Procedure/Recovery Time Start Date: 12/05/17 End Date: 12/05/17 Anesthesia : Time In: 08:09 Anesthesia : Time Out: 12:03 Anesthesia : Total Time: 234 - Total Anesthesia Time Total Anesthesia Time (minutes): 234 - Other Weight: 83.915 kg Height: 6 ft 4 in Body Mass Index (BMI): 22.5 Physical Status: P3 (COPD,Tobacco,) Anesthesia Type: General Anesthesia : ET
[2017-12-05] MEDS ORDERED: TRANEXAMIC ACID 1,000 MG / 10 ML VIAL ONE ×2 (06:56→11:07)
[2017-12-05] MEDS ORDERED: fentaNYL Inj 250 MCG/5 ML VIAL ONE ×2 (07:01→08:27)
[2017-12-05] MEDS ORDERED: BUPIVACAINE 0.5% W/EPI MPF -30 ML VIAL IV ONE (07:01)
[2017-12-05] MEDS ORDERED: DEXAMETHASONE PF 10 MG/1 ML VIAL ONE (07:01)
[2017-12-05] MEDS ORDERED: ROPIVACAINE HCL 7.5 MG/1 ML - 20 ML ONE (07:01)
[2017-12-05] MEDS ORDERED: MIDAZOLAM 5 MG/1 ML ONE (07:01)
[2017-12-05 07:05] LABS: BILIRUBIN,URINE NEGATIVE (NEG); CLARITY,URINE CLEAR (CLEAR); COLOR,URINE YELLOW (Y); GLUCOSE, URINE (UA) NEGATIVE (NEG); OCCULT BLOOD,URINE NEGATIVE (NEG); PROTEIN,URINE NEGATIVE (NEG); UROBILINOGEN,URINE 0.2 EU/dL (0.2)
[2017-12-05 07:06] LABS: URINE SAMPLE TYPE CLEAN CATCH URINE
[2017-12-05] MEDS ORDERED: Sodium Chloride 0.9% 0 ML PRIMARY IV ONE (07:07)
[2017-12-05] MEDS ORDERED: Sodium Chloride 0.9% 250 ML ONE (07:07)
[2017-12-05] MEDS ORDERED: BACITRACIN 50,000 UNIT VIAL IRRIG ONE ×2 (07:18→11:02)
[2017-12-05] MEDS ORDERED: Sodium Chloride 0.9% vial 60 ML ONE (07:18)
--- NOTE | 2017-12-05 07:36 | CRNA.PROCE ---
Nerve Block Documentation - - Safety Measures: Time Out Taken, Site Verified - - Type of Nerve Block Used: Right Adductor Canal Nerve Block (Analgesia block for Post TKA right.) Position for Nerve Block: Supine Moniters Used During Block: EKG, SPO2, NIBP Oxygen Supplemented: Yes Sedation Used - Enter Amount in Comment Field [ANES.SEDAT]: Midazolam (mg): Yes (3), Fentanyl (mcg): Yes (100) Skin Prep Used: ChloroPrep Draped: No Technique: Ultrasound Nerve Block Needle Used: EchoBlaze DFM 100 mm Local Anesthetic - Enter Amt in Comment Field [ANES.LOCNB]: 0.5 % Bupivicaine with Epinephrine 1:200,000 (mL): Yes (15 ml), Other Anesthetic: Yes (0.75% Ropi 15 ml) Additives to Nerve Blocks: Dexamethasone (mg): Yes (10) - - PreOp Block : Time In: 07:07 PreOp Block : Time Out: 07:20 Anesthesia Time - Other Weight: 83.915 kg Height: 6 ft 4 in Body Mass Index (BMI): 22.5
[2017-12-05] MEDS ORDERED: KETAMINE 100 MG/1 ML - 5 ML ONE (07:55)
[2017-12-05] MEDS ORDERED: PROPOFOL 10 MG/1 ML (200 MG/20 ML) VIAL IV ONE ×2 (07:56→08:22)
[2017-12-05] MEDS ORDERED: Hetastarch 6% + NS 500 ML IV ONE (08:28)
[2017-12-05] MEDS ORDERED: Sodium Chloride 0.9% vial 20 ML ONE (11:01)
--- NOTE | 2017-12-05 11:48 | ORTHO.OP ---
- - -: See Dictated Operative Report Procedure Codes - Lower Extremity/Knee Procedures Primary Lower Extremity Procedure Code: 90071 : TKA (So CAMPOS assisted)
--- NOTE | 2017-12-05 12:44 | CRNA.PROGR ---
Post Anesthesia Phase II - Post Anesthesia Phase II Patient Stable and Discharged To: Med/Surg Care Assumed By Surgeon: Ramses Miller MD Temperature: 98.6 F Pulse Rate: 89 Respiratory Rate: 14 Blood Pressure: 130/87 Pulse Ox: 94
--- NOTE | 2017-12-05 12:44 | CRNA.PROGR ---
Anesthesia Recovery Phase I - Post Anesthesia Evaluation Patient's Condition on Arrival in Phase I: Stable Patient's Condition on Arrival in Phase II: Stable
[2017-12-05] MEDS ORDERED: LIDOCAINE HCL 2 % 10 ML JELLY URO-JECT TOPICAL PRN (13:03)
[2017-12-05] MEDS ORDERED: BISACODYL 5 MG TABLET PO PRN (13:03)
[2017-12-05] MEDS ORDERED: ACETAMINOPHEN 325 MG TABLET PO PRN (13:03)
[2017-12-05] MEDS ORDERED: Prochlorperazine Tab 10 MG TAB PO PRN (13:03)
[2017-12-05] MEDS ORDERED: MAG HYDROX/AL HYDROX/SIMETH 30 ML SUSP PO PRN (13:03)
[2017-12-05] MEDS ORDERED: BISACODYL 10 MG SUPPOSITORY RECTAL PRN (13:03)
[2017-12-05] MEDS ORDERED: ALBUTEROL SULFATE 8.5 GM HFA INHALER INH SCH (13:03)
[2017-12-05] MEDS ORDERED: diphenhydrAMINE 25 MG CAPSULE PO PRN (13:03)
[2017-12-05] MEDS ORDERED: CALCIUM CARBONATE 500 MG (TUMS) CHEWABLE TABLET PO PRN (13:03)
--- NOTE | 2017-12-05 13:17 | DI ---
XR KNEE 1 OR 2 VWS 12/05/2017 11:49 AM HISTORY: ^tka Comparison: None. Findings: Portable AP and lateral views of the right knee show postsurgical changes consistent with t otal knee arthroplasty. Overlying bandage obscures fine anatomic detail. There is no evidence of hard grullon fracture or loosening. No acute fracture is detected. There is a small suprapatellar joint effus ion with locules of gas, an expected finding in the immediate postoperative timeframe. Calcifications are present in the vasculature. Impression: Status post total knee arthroplasty without evidence of hardware failure or acute osseous abnormality.
[2017-12-05] MEDS: Lactated Ringers 1,000 ML PRIMARY IV SCH (15:07)
[2017-12-05] MEDS: GABAPENTIN 300 MG CAPSULE PO SCH ×2 (15:07→20:14)
[2017-12-05] MEDS: ceFAZolin Inj 2gm (Premix) 2 GM/50 ML BAG IV SCH ×2 (15:55→23:48)
--- NOTE | 2017-12-05 16:21 | ORTHO.PROG ---
Last Taken Vital Signs: Vital Signs - Last Taken Temperature 97.4 F 12/05/17 15:20 Pulse Rate 71 12/05/17 15:20 Respiratory Rate 18 12/05/17 15:20 Blood Pressure 122/76 12/05/17 15:20 Pulse Ox 95 12/05/17 15:20 Subjective: Patient doing well has no pain right knee Objective: Examination shows that the patient's dressing is clean and dry and is in place. He has good motor examination of the lower extremity including dorsiflexion of the foot and ankle as well as plantar flexion of the foot and ankle. Is no active bleeding or other issues good pulses brisk refill Vital Signs (Last 8 hours) Temp Pulse Pulse Resp BP BP Pulse Ox 12/05/17 15:20 97.4 F 71 18 122/76 95 12/05/17 14:53 96 12/05/17 14:45 97.3 F 78 16 125/77 92 12/05/17 14:00 97.7 F 81 17 125/73 91 12/05/17 13:45 97.7 F 77 17 105/57 90 12/05/17 13:30 97.5 F 78 16 113/68 91 12/05/17 13:09 98.0 F 81 16 112/67 92 12/05/17 12:45 85 14 125/67 94 12/05/17 12:44 98.6 F 89 14 130/87 94 12/05/17 12:35 89 14 130/87 94 12/05/17 12:25 85 14 135/80 94 12/05/17 12:15 83 12 129/79 93 12/05/17 12:05 84 12 128/82 92 12/05/17 12:00 83 12 132/82 92 12/05/17 11:55 98.6 F 76 12 137/83 92 Assessment: Right total knee replacement overall doing well Plan: Patient will continue with pain control right now he is doing great with the 2 intra-articular blocks in the abductor block as this wears off I suspect he should be well covered with the oral and IV medication we have ordered. DVT prophylaxis with pneumatic sequential devices and Lovenox. He is seeing physical therapy will continue this while he is in the hospital.
--- NOTE | 2017-12-05 16:50 | PT.PROG ---
Progress Note Progress Note: Inpatient Initial Evaluation Name: Joselito Sampson Date: 12/05/17 Referring Physician: Ramses Miller Date of Surgery/Admission: 12/05/17 Diagnosis: s/p R TKA Thank you for your referral of PT. He was seen on 12/05/17 for the above diagnosis. Subjective: The patient is a 57 year old male who was seen s/p TKA on the R. 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 He reports he has someone who will be staying with him after his discharge. He has four stairs at home. He reports he will be completing outpatient therapy in a facility closer to home. Patient states his pain is a 1/10 currently, and that he was a little light headed when he woke up. Past Medical History: Past medical history can be found in the patient's medical chart. Objective: Patient presents to therapy in supine position in hospital bed. He was fit and dressed with a knee immobilizer on the R prior to sitting upright. BP in seated position was 126/72, and O2 was 93%. Patient completed a single sit to stand with good balance and his BP was again recorded as 124/82. He reported no numbness into the LE. Patient ambulated from his bed to chair with MOAx2. Assessment: Patient signs and symptoms are consistent with the above diagnosis. Patient was educated on the duration the effects of his pain medication will last. Patient will benefit from skilled intervention to improve ROM and strength prior to discharge. Problem List: 1. Restrictions in ROM 2. Swelling 3. Difficulty walking Short term goals: Patient will be able to complete transfers independently in order to safely transfer at home following discharge. Patient will be able to ambulate 150 ft independently in order to move about the home safely and independently following discharge. Half-Way Goals: Patient will be seen by outpatient physical therapy following discharge. Treatment Plan: Patient will be seen twice a day during the week and once over the weekend as an inpatient until discharge. Initial Treatment: See objective Respectfully cecy, Josie Liang, [facility]
[2017-12-05] MEDS ORDERED: NICOTINE 21 MG /DAY PATCH TRANSDERM ONE (17:35)
--- NOTE | 2017-12-05 17:37 | CONSULT ---
Consult Note - Consult Consult Date: 12/05/17 Reason for Consult: PostOp Consulation : Ortho Requesting Physician: Dr. Miller Primary Care Provider: Ramses Miller MD HPI - History of Present Illness Date of Service: 12/05/17 Time of Service: 17:32 Chief Complaint: Right knee pain History of Present Illness: This very pleasant 57-year-old male with prior history of hypothyroidism, right knee pain, and multiple osteoarthritic issues in the past who presented for a right total knee arthroplasty done by Dr. Miller today. See his surgical note for further details. Postoperatively, the patient denies any chest pain, shortness breath, nausea or vomiting. He states he is normally on Synthroid replacement tablet for hypothyroidism. He states that his knee pain and been chronic for some time and is been on opiates to manage pain and opted for replacement. He's had both of his shoulders operated on and these also had his left knee replaced. He was at the end of medical management as it failed prior to surgery. He did have some mild nausea postoperatively that is now resolved. I was asked to see the patient to help address his hypothyroidism, and his COPD for which he takes 2 L of oxygen at night. He is also on albuterol on a when necessary basis. He smokes a pack per day. But he states that he wants to try to quit. He would like to try the nicotine patch. Past Medical History Medical History: 1. Hypothyroidism. 2. COPD on oxygen at night. 3. Osteoarthritis. 4. History of hepatitis C Surgical History: 1. Left knee replacement. 2. Shoulder surgeries bilaterally. 3. Appendectomy Family History: Reviewed an Not Pertinent Pertinent Family History: Significant for heart attack and one of his parents and he also has a mother who had a history of cancer. Past Social History: Used to drink, continue to smoke, smokes marijuana Tobacco Use: Current Every Day Smoker Alcohol Use: None (Quit drinking alcohol 2 years ago.) Review of Systems - Constitutional Constitutional: REPORTS: Negative System Review - Respiratory Respiratory: REPORTS: Negative System Review - Cardiovascular Cardiovascular: REPORTS: Negative System Review - Gastrointestinal Gastrointestinal / Abdominal: REPORTS: Negative System Review - Musculoskeletal Musculoskeletal: REPORTS: Joint Pain - Knees Medication / Allergies Home Medications: Home Medications 3 Medication Instructions Recorded Confirmed Type Albuterol Neb Soln 0.021% 1 unit NEB BID unit 10/15/14 12/05/17 History Oxygen (O2) 1 l INH DAILY #2 unit 10/15/14 11/22/17 History Cyclobenzaprine HCl [Flexeril] 10 mg PO QID 11/11/14 12/05/17 History Albuterol Sulfate [Ventolin Hfa] 1 - 2 puff INH PRN puff 07/15/15 12/05/17 History Levothyroxine Sodium 1 tab PO DAILY tab 07/15/15 12/05/17 History Mirtazapine [Remeron] 1 tab PO QHS tab 07/15/15 12/05/17 History Gabapentin 1 tab PO TID tab 03/08/16 12/05/17 History meloxicam 7.5 mg tablet See Label Instructions PO QDAY PRN 10/05/17 12/05/17 Rx #60 tab hydrocodone 7.5 mg-acetaminophen 1 tab PO .HS PRN #30 tab 11/01/17 12/05/17 Rx 325 mg tablet Allergies/Adverse Reactions: Allergies 3 Allergy/AdvReac Type Severity Reaction Status Date / Time Influenza Virus Vaccines Allergy Intermediate ITCHING Verified 12/05/17 06:07 TAPE Allergy Intermediate BURNED Uncoded 11/01/17 12:48 SKIN AND SLOUGHED OFF LIKE BURN Exam - Vitals Vital Signs: Vital Signs Vital Signs - Last Taken Temperature 97.6 F 12/05/17 16:46 Pulse Rate 69 12/05/17 16:46 Respiratory Rate 16 12/05/17 16:46 Blood Pressure 126/82 12/05/17 16:46 Pulse Ox 94 12/05/17 16:46 Height 6 ft 4 in Weight 185 lb - General General Appearance: No Acute Distress, Cooperative - Head Head Exam: Normal Inspection, Normocephalic, Atraumatic - Eye Eye Exam: POSITIVE: No Scleral Icterus - ENT ENT Exam: POSITIVE: Mucous Membranes Moist - Neck Neck Exam: Normal Inspection, JVP is not Raised - Respiratory Respiratory Exam: POSITIVE: Clear to Auscultation - Bilaterally, Breathing Non Labored, Normal to Percussion and Palpation - Cardiovascular Cardiovascular Exam: POSITIVE: RRR, No Murmur, No Clicks, No Gallops, No Rubs, No JVD - GI/Abdominal GI/Abdominal Exam: POSITIVE: Normal Bowel Sounds, Non Tender, Non Distended, Soft - Rectal Rectal Exam: POSITIVE: Deferred - External Exam: POSITIVE: Deferred Exam: POSITIVE: Deferred - Extremities Extremities Exam: POSITIVE: No Clubbing Present, No Edema Present, No Cyanosis Present Additional Extremities Exam Details: Right knee is dressed. Dressing is clean, dry, intact. - Back Back Exam: POSITIVE: No CVA Tenderness - Neurological Neurological Exam: POSITIVE: Alert, Oriented x 3, No Facial Droop, Speech Intact / Clear - Psychiatric Psychiatric Exam: POSITIVE: Normal Affect, Normal Mood Results - Labs Additional Lab Results: The urinalysis available for review is negative. I do not have preoperative labs available to review at this time. - Imaging Status: Report Reviewed by Me (The patient has a knee that is status post knee replacement.) Assessment and Plan - Patient Problems (1) COPD (chronic obstructive pulmonary disease) Current Visit: Yes Status: Acute Code(s): J44.9 - Chronic obstructive pulmonary disease, unspecified Qualifiers: COPD type: emphysema Emphysema type: unspecified Qualified Code(s): J43.9 - Emphysema, unspecified (2) Hypothyroidism Current Visit: Yes Status: Acute Code(s): E03.9 - Hypothyroidism, unspecified Qualifiers: Hypothyroidism type: acquired Qualified Code(s): E03.9 - Hypothyroidism, unspecified (3) Arthritis of right knee Current Visit: Yes Status: Acute Code(s): M17.11 - Unilateral primary osteoarthritis, right knee (4) Status post knee surgery Current Visit: Yes Status: Acute Code(s): Z98.890 - Other specified postprocedural states (5) Hepatitis C Current Visit: Yes Status: Acute Code(s): B19.20 - Unspecified viral hepatitis C without hepatic coma Qualifiers: Viral hepatitis chronicity: chronic Hepatic coma status: without hepatic coma Qualified Code(s): B18.2 - Chronic viral hepatitis C - Assessment / Plan Additional Assessment/Plan Details: Thus far, there is no evidence of any hepatic decline. If he develops any symptoms, we can check some liver enzymes but likely the management of this hepatitis C, chronic issue, will be deferred to his primary physician upon discharge. Resume hypothyroidism replacement. This will be done with Synthroid. He has albuterol written in case there is any breathing or respiratory issues and is written for oxygen as well. He is normally on 2 L per nasal cannula at nighttime. No evidence of any acute exacerbation of COPD. He is allergic to the flu shot. PT and OT. DVT prophylaxis as per orthopedics, but I would recommend 10-14 days post knee replacement. I would like to thank Dr. Miller for this consult will be the hospitalist services pleasure to assist and advise on the management of the medical issues noted during the hospital stay.
[2017-12-05] MEDS: HYDROcodone-APAP 10 MG-325 MG TABLET PO PRN (18:54)
[2017-12-05] MEDS: ALBUTEROL SULFATE 2.5 MG/3 ML NEB SCH (18:56)
[2017-12-05] MEDS ORDERED: ALBUTEROL SULFATE 0.63 MG/3 ML NEB SCH (19:00)
[2017-12-05] MEDS: CYCLOBENZAPRINE 10 MG TABLET PO SCH (20:13)
[2017-12-05] MEDS: Mirtazapine Tab 15 MG TAB PO SCH (20:13)
[2017-12-05] MEDS: DOCUSATE 100 MG CAPSULE PO SCH (20:13)
[2017-12-06] MEDS: Lactated Ringers 1,000 ML PRIMARY IV SCH ×2 (02:19→13:34)
[2017-12-06] MEDS: HYDROcodone-APAP 10 MG-325 MG TABLET PO PRN ×5 (02:21→19:35)
[2017-12-06 04:40] LABS: Hematocrit [HCT] 31.2 % (42.0-52.0); Hemoglobin [HGB] 10.4 g/dL (14.0-18.0); MEAN CORPUSCULAR HEMOGLOBIN 30.3 PG (27-31); MEAN CORPUSCULAR HGB CONC 33.3 g/dL (33-37); MEAN PLATELET VOLUME 9.6 FL (7.4-12.2); RED BLOOD COUNT 3.43 10^6/uL (4.70-6.10)
[2017-12-06] MEDS: LEVOTHYROXINE 75 MCG TABLET PO SCH (04:40)
[2017-12-06 04:56] LABS: BLOOD UREA NITROGEN 9 mg/dL (7-22)
[2017-12-06] MEDS: ALBUTEROL SULFATE 2.5 MG/3 ML NEB SCH ×2 (06:25→18:46)
--- NOTE | 2017-12-06 07:56 | ORTHO.PROG ---
Last Taken Vital Signs: Vital Signs - Last Taken Temperature 98.2 F 12/06/17 07:22 Pulse Rate 82 12/06/17 07:22 Respiratory Rate 18 12/06/17 07:22 Blood Pressure 133/63 12/06/17 07:22 Pulse Ox 90 12/06/17 07:22 Subjective: Patient feels his pain is controlled with the oral and IV medications Objective: Motor and sensory exam is intact. Patient with good motion of the foot and ankle good sensory exam good pulses brisk refill dressing is clean and dry no evidence of issues. Laboratory Results 12/06/17 12/06/17 Range/Units 04:13 04:13 WBC 10.10 (4.8-10.8) 10^3/uL RBC 3.43 L (4.70-6.10) 10^6/uL Hgb 10.4 L (14.0-18.0) g/dL Hct 31.2 L (42.0-52.0) % MCV 91.0 H (80-90) FL MCH 30.3 (27-31) PG MCHC 33.3 (33-37) g/dL RDW Std Deviation 45.1 (39-50) fL RDW Coeff of Mansi 14.2 (11.5-14.5) % Plt Count 138 L (140-350) 10*3/uL MPV 9.6 (7.4-12.2) FL Sodium 138 (135-145) meq/L Potassium 3.4 L (3.8-5.2) meq/L Chloride 106 (98-112) meq/L Carbon Dioxide 25 (23-33) meq/L Anion Gap 7 (5-20) BUN 9 (7-22) mg/dL Creatinine 0.6 L (0.70-1.50) mg/dL Estimated GFR > 60 (>60 ml/min/1.73m(2)) BUN/Creatinine Ratio 15.00 (6-20) Glucose 139 H (78-110) mg/dL Calculated Osmolality 286.0 (267-292) mOsm/kg Calcium 7.7 L (8.7-10.7) mg/dL Vital Signs (24 hrs) Temp Pulse Pulse Resp BP BP Pulse Ox 12/06/17 07:22 98.2 F 82 18 133/63 90 12/06/17 07:00 16 12/06/17 06:26 80 18 99 12/06/17 06:25 82 18 91 12/06/17 04:39 98.4 F 89 20 140/63 91 12/06/17 00:08 97.9 F 87 18 126/69 91 12/05/17 20:34 97.8 F 80 20 161/76 92 12/05/17 18:57 78 18 93 12/05/17 18:56 74 18 93 12/05/17 16:46 97.6 F 69 16 126/82 94 12/05/17 15:20 97.4 F 71 18 122/76 95 12/05/17 14:53 96 12/05/17 14:45 97.3 F 78 16 125/77 92 12/05/17 14:00 97.7 F 81 17 125/73 91 12/05/17 13:45 97.7 F 77 17 105/57 90 12/05/17 13:30 97.5 F 78 16 113/68 91 12/05/17 13:09 98.0 F 81 16 112/67 92 12/05/17 12:45 85 14 125/67 94 12/05/17 12:44 98.6 F 89 14 130/87 94 12/05/17 12:35 89 14 130/87 94 12/05/17 12:25 85 14 135/80 94 12/05/17 12:15 83 12 129/79 93 12/05/17 12:05 84 12 128/82 92 12/05/17 12:00 83 12 132/82 92 12/05/17 11:55 98.6 F 76 12 137/83 92 Assessment: Right total knee replacement overall doing well. Anemia Hepatitis chronic C variety Hypothyroidism Plan: Patient is doing very well we'll continue with current plan of physical therapy and occupational therapy. Patient will continue with the deep vein thromboses therapy with pneumatics and Lovenox. Pain control seems to be reasonable but we 'll see how he does after therapy. Continue with current plan
[2017-12-06] MEDS: CYCLOBENZAPRINE 10 MG TABLET PO SCH ×2 (08:12→21:15)
[2017-12-06] MEDS: ENOXAPARIN SODIUM 30 MG/0.3 ML SYRINGE SUBCUT SCH ×2 (08:13→21:16)
[2017-12-06] MEDS: DOCUSATE 100 MG CAPSULE PO SCH ×2 (08:13→21:14)
[2017-12-06] MEDS: GABAPENTIN 300 MG CAPSULE PO SCH ×3 (08:13→21:15)
[2017-12-06] MEDS: NICOTINE 21 MG /DAY PATCH TRANSDERM SCH (08:13)
[2017-12-06] MEDS ORDERED: POTASSIUM CHLORIDE 20 MEQ TAB PO ONE (10:47)
--- NOTE | 2017-12-06 11:06 | PT.PROG ---
Progress Note Progress Note: S: pt reports he is in a lot of pain today. doesn't have full feeling of his RLE. pt reports he is from [place] and has a room mate. O: pt brought down to therapy by OT. MHP x 20 mins , micro massage for edema, quad sets 2 x 10, heel slides x 10 reps, ankle pumps x 10 reps, sit to stands x 5 reps with knee immobilizer with standard walker with CGA x1 and max vc's for safety and technique .pt intructed to ambulate approx 100 feet w/ CGA x1 w standard walker and max vc's for safety. pt returned to room in chair with chair alarm activated and call light within reach. A: pt tolerated therapy fair very sporatic. not safe to go home. P: cont per POC
--- NOTE | 2017-12-06 11:08 | PDOC(PROG) ---
Date of Service: 12/06/17 Time of Service: 11:06 Interval History: States the pain in his knee increased after therapy. No chest pain. No nausea or vomiting. No abdominal pain. No shortness of breath. States to me he is normally on potassium at home. Objective : Data - Labs CBC and BMP: 12/06/17 04:13 12/06/17 04:13 Objective : Exam - General General Appearance: No Acute Distress, Cooperative Additional General Exam Details: Vital Signs - Last Taken Temperature 98.2 F 12/06/17 07:22 Pulse Rate 82 12/06/17 07:22 Respiratory Rate 18 12/06/17 07:22 Blood Pressure 133/63 12/06/17 07:22 Pulse Ox 90 12/06/17 07:22 - Eye Eye Exam: No Scleral Icterus - ENT ENT Exam: Mucous Membranes Moist - Respiratory Respiratory Exam: Clear to Auscultation - Bilaterally, Breathing Non Labored - Cardiovascular Cardiovascular Exam: RRR, No Murmur, No Clicks, No Gallops, No Rubs, No JVD - GI/Abdominal GI/Abdominal Exam: Normal Bowel Sounds, Non Tender, Non Distended, Soft - Extremities Extremities Exam: No Clubbing Present, No Edema Present, No Cyanosis Present - Neurological Neurological Exam: Alert, Oriented x 3, No Facial Droop, Speech Intact / Clear Assessment and Plan - Patient Problems (1) Hypokalemia Current Visit: Yes Status: Acute Code(s): E87.6 - Hypokalemia (2) COPD (chronic obstructive pulmonary disease) Current Visit: Yes Status: Acute Code(s): J44.9 - Chronic obstructive pulmonary disease, unspecified Qualifiers: COPD type: emphysema Emphysema type: unspecified Qualified Code(s): J43.9 - Emphysema, unspecified (3) Hypothyroidism Current Visit: Yes Status: Acute Code(s): E03.9 - Hypothyroidism, unspecified Qualifiers: Hypothyroidism type: acquired Qualified Code(s): E03.9 - Hypothyroidism, unspecified (4) Arthritis of right knee Current Visit: Yes Status: Acute Code(s): M17.11 - Unilateral primary osteoarthritis, right knee (5) Status post knee surgery Current Visit: Yes Status: Acute Code(s): Z98.890 - Other specified postprocedural states (6) Hepatitis C Current Visit: Yes Status: Acute Code(s): B19.20 - Unspecified viral hepatitis C without hepatic coma Qualifiers: Viral hepatitis chronicity: chronic Hepatic coma status: without hepatic coma Qualified Code(s): B18.2 - Chronic viral hepatitis C - Assessment / Plan Additional Assessment/Plan Details: Replace potassium. Resume daily potassium. Labs in a.m. PT and OT. Pain control. No changes to Synthroid dose. DVT prophylaxis. Another 9-13 days.
--- NOTE | 2017-12-06 15:28 | CRNA.PROGR ---
Anesthesia Note - Progress Notes Anesthesia Progress Note: POst OP Anesthesia Note Pt is siting up in bedside chair with operative leg elevated with ice. He states that he had a good night and was able to sleep well. The regional block wore off about 10AM and he is now having significant pain that is be treated with oral pain medication. He has tolerated a regular diet and denies any residual problems from the anesthetic. He has been up to the restroom, PT and is dressed in his clothes. Current VS are stable. Vital Signs - Last Taken Temperature 98.2 F 12/06/17 11:22 Pulse Rate 78 12/06/17 11:22 Respiratory Rate 18 12/06/17 11:22 Blood Pressure 153/97 12/06/17 11:22 Pulse Ox 90 12/06/17 11:22
[2017-12-06] MEDS: HYDROmorphone 2 MG/1 ML IVP PRN (15:48)
--- NOTE | 2017-12-06 16:06 | PT.PROG ---
Progress Note Progress Note: S. Patient stated that he is in a lot of pain this afternoon, he reports 8/10 pain. O. Patient transferred to the wheelchair and was wheeled to the therapy gym where he had heat and micro massage to decrease pain and edema. Patient then performed heel slides, quad sets, ankle pumps, and short arc quads all x 10. Patient transferred to the wheelchair and was returned to his room where he transferred to the bed and was left with alarm and call light. A. Patient tolerated therapy poor, he was unable to perform all therapy due to pain, Patient would continue to benefit from skilled therapy to increase strength, mobility and Range of motion. P. Continue POC.
[2017-12-06] MEDS: Mirtazapine Tab 15 MG TAB PO SCH (21:14)
[2017-12-07] MEDS: HYDROcodone-APAP 10 MG-325 MG TABLET PO PRN ×5 (00:13→15:02)
[2017-12-07 04:33] LABS: Hematocrit [HCT] 31.6 % (42.0-52.0); Hemoglobin [HGB] 10.5 g/dL (14.0-18.0); MEAN CORPUSCULAR HEMOGLOBIN 30.4 PG (27-31); MEAN CORPUSCULAR HGB CONC 33.2 g/dL (33-37); MEAN CORPUSCULAR VOLUME 91.6 FL (80-90); MEAN PLATELET VOLUME 9.7 FL (7.4-12.2); RED BLOOD COUNT 3.45 10^6/uL (4.70-6.10)
[2017-12-07] MEDS: LEVOTHYROXINE 75 MCG TABLET PO SCH (04:45)
[2017-12-07] MEDS: HYDROmorphone 2 MG/1 ML IVP PRN ×4 (04:49→16:22)
[2017-12-07 04:58] LABS: BLOOD UREA NITROGEN 9 mg/dL (7-22)
[2017-12-07] MEDS: ALBUTEROL SULFATE 2.5 MG/3 ML NEB SCH ×2 (06:15→18:41)
[2017-12-07] MEDS: CYCLOBENZAPRINE 10 MG TABLET PO SCH ×2 (08:33→20:15)
[2017-12-07] MEDS: GABAPENTIN 300 MG CAPSULE PO SCH ×3 (08:33→20:15)
[2017-12-07] MEDS: ENOXAPARIN SODIUM 30 MG/0.3 ML SYRINGE SUBCUT SCH ×2 (08:33→20:15)
[2017-12-07] MEDS: NICOTINE 21 MG /DAY PATCH TRANSDERM SCH (08:33)
[2017-12-07] MEDS: POTASSIUM CHLORIDE 20 MEQ TAB PO SCH (08:33)
[2017-12-07] MEDS: DOCUSATE 100 MG CAPSULE PO SCH ×2 (08:33→20:15)
--- NOTE | 2017-12-07 10:57 | OT.PROG ---
Progress Note Progress Note: S: pt stated that his pain is about a 9/10 this morning. He reported only sleeping about an hour last night. He did refuse therapy when first entered his room but eventually decided to participate. O: pt was seen in his room today in the a.m. When arrived he had ice packs placed under his knee preventing knee ext. He did bigg Le socks INd without the use of A.E. He completed bed mobility with MIn A today as he had difficulty with affected leg. He completed sit to stand INd and transferred apprx 5 ft to w/c before being transferred downstairs. He was left upright on heat for 20 min. A: pt reports lots of pain today,but continues to be somewhat impulsive with his movements. He does not want to use a walker with wheels at this time due to safety reasons. P: continue per pOC.
--- NOTE | 2017-12-07 11:06 | PT.PROG ---
Progress Note Progress Note: S. Patient stated that he is in a lot of pain he reports his pain as a 9/10. Patient agreed to go to the therapy gym. O. Patient was wheeled to the therapy gym where he had heat and micro massage to decrease pain and edema. Patient then performed heel slides, quad sets, ankle pumps all x 10. Patient then performed seated knee flexion x 1 minute, patient transferred back to the wheelchair and was wheeled to his room where he transferred to the bed and had dressing changed to a flexible silverlon with nursing assist. Patient was left in bed with nursing. A. Patient tolerated therapy poor, he was unable to perform exercises due to pain, he was unable to ambulate further than a few feet to the wheelchair, Patient was unable to perform short arc quad and struggled with range of motion. Patient continues to use Knee immobilizer while standing and ambulating. Patient had removed silver bandage before nursing and i had entered the room to replace the silverlon bandage. Patient had minimal amount of sero- sanguineous drainage. Patient would continue to benefit from skilled therapy to increase strength, mobility and Range of motion. P. Continue POC.
[2017-12-07] MEDS ORDERED: CELECOXIB 200 MG CAPSULE PO ONE (11:27)
[2017-12-07] MEDS ORDERED: LACTULOSE 20 GM PACKET PO ONE (11:28)
[2017-12-07] MEDS ORDERED: LACTULOSE 20 GM PACKET PO PRN (11:29)
[2017-12-07] MEDS: oxyCODONE IR Tab 5 MG TAB PO PRN ×2 (11:52→17:52)
--- NOTE | 2017-12-07 13:21 | PDOC(PROG) ---
Date of Service: 12/07/17 Time of Service: 10:45 Interval History: No chest pain, shortness breath, nausea or vomiting. Has not had a bowel movement yet. Knee pain is worse today, worse with therapy. Objective : Data - Labs CBC and BMP: 12/07/17 04:00 12/07/17 04:00 Objective : Exam - General General Appearance: No Acute Distress, Cooperative Additional General Exam Details: Vital Signs - Last Taken Temperature 98.1 F 12/07/17 11:54 Pulse Rate 93 12/07/17 11:54 Respiratory Rate 18 12/07/17 11:54 Blood Pressure 140/84 12/07/17 11:54 Pulse Ox 91 12/07/17 11:54 - Eye Eye Exam: No Scleral Icterus - ENT ENT Exam: Mucous Membranes Moist - Respiratory Respiratory Exam: Clear to Auscultation - Bilaterally, Breathing Non Labored - Cardiovascular Cardiovascular Exam: RRR, No Murmur, No Clicks, No Gallops, No Rubs, No JVD - GI/Abdominal GI/Abdominal Exam: Normal Bowel Sounds, Non Tender, Non Distended, Soft - Extremities Extremities Exam: No Clubbing Present, No Cyanosis Present, +1 Edema (Right lower extremity. Within normal range of a knee replacement.) Additional Extremities Exam Details: Incision is dressed, dressing is clean, dry, intact - Neurological Neurological Exam: Alert, Oriented x 3, No Facial Droop, Speech Intact / Clear Assessment and Plan - Patient Problems (1) COPD (chronic obstructive pulmonary disease) Current Visit: Yes Status: Acute Code(s): J44.9 - Chronic obstructive pulmonary disease, unspecified Qualifiers: COPD type: emphysema Emphysema type: unspecified Qualified Code(s): J43.9 - Emphysema, unspecified (2) Hypothyroidism Current Visit: Yes Status: Acute Code(s): E03.9 - Hypothyroidism, unspecified Qualifiers: Hypothyroidism type: acquired Qualified Code(s): E03.9 - Hypothyroidism, unspecified (3) Arthritis of right knee Current Visit: Yes Status: Acute Code(s): M17.11 - Unilateral primary osteoarthritis, right knee (4) Status post knee surgery Current Visit: Yes Status: Acute Code(s): Z98.890 - Other specified postprocedural states (5) Hepatitis C Current Visit: Yes Status: Acute Code(s): B19.20 - Unspecified viral hepatitis C without hepatic coma Qualifiers: Viral hepatitis chronicity: chronic Hepatic coma status: without hepatic coma Qualified Code(s): B18.2 - Chronic viral hepatitis C (6) Hypokalemia Current Visit: Yes Status: Resolved Code(s): E87.6 - Hypokalemia - Assessment / Plan Additional Assessment/Plan Details: Replace potassium if necessary. No changes for COPD. There is no evidence of acute exacerbation. We will continue with nicotine replacement and I'm hopeful that the patient will be able to quit as this is the #1 treatment for COPD. Continue PT and OT/pain control postoperatively/DVT prophylaxis.
--- NOTE | 2017-12-07 13:22 | ORTHO.PROG ---
Last Taken Vital Signs: Vital Signs - Last Taken Temperature 98.1 F 12/07/17 11:54 Pulse Rate 93 12/07/17 11:54 Respiratory Rate 18 12/07/17 11:54 Blood Pressure 140/84 12/07/17 11:54 Pulse Ox 91 12/07/17 11:54 Subjective: Patient with a fair amount of knee pain this morning Objective: Examination shows that the incision is clean and dry, patient with a fair amount of swelling at the level of the knee with an effusion. Motor and sensory exam distally is good Laboratory Results 12/07/17 12/07/17 Range/Units 04:00 04:00 WBC 7.74 (4.8-10.8) 10^3/uL RBC 3.45 L (4.70-6.10) 10^6/uL Hgb 10.5 L (14.0-18.0) g/dL Hct 31.6 L (42.0-52.0) % MCV 91.6 H (80-90) FL MCH 30.4 (27-31) PG MCHC 33.2 (33-37) g/dL RDW Std Deviation 46.7 (39-50) fL RDW Coeff of Mansi 14.5 (11.5-14.5) % Plt Count 151 (140-350) 10*3/uL MPV 9.7 (7.4-12.2) FL Sodium 140 (135-145) meq/L Potassium 4.6 D (3.8-5.2) meq/L Chloride 104 (98-112) meq/L Carbon Dioxide 30 (23-33) meq/L Anion Gap 6 (5-20) BUN 9 (7-22) mg/dL Creatinine 0.6 L (0.70-1.50) mg/dL Estimated GFR > 60 (>60 ml/min/1.73m(2)) BUN/Creatinine Ratio 15.00 (6-20) Glucose 107 (78-110) mg/dL Calculated Osmolality 288.0 (267-292) mOsm/kg Calcium 8.2 L (8.7-10.7) mg/dL Vital Signs (24 hrs) Temp Pulse Pulse Resp BP Pulse Ox 12/07/17 11:54 98.1 F 93 18 140/84 91 12/07/17 07:16 98 F 81 16 152/85 91 12/07/17 07:00 81 16 12/07/17 06:16 88 18 12/07/17 06:15 88 18 93 12/07/17 04:42 97.7 F 88 159/81 91 12/07/17 03:41 91 12/07/17 00:05 98.2 F 81 20 151/80 91 12/06/17 20:21 97.6 F 87 22 152/87 90 12/06/17 19:00 22 12/06/17 18:47 95 18 88 12/06/17 18:46 95 18 88 12/06/17 16:05 97.8 F 79 16 140/73 93 Assessment: Right total knee replacement Anemia Plan: Patient will continue with pain control ice elevation physical therapy and occupational therapy. DVT prophylaxis with enoxaparin and pneumatic sequentials.
--- NOTE | 2017-12-07 15:50 | OT.PROG ---
Progress Note Progress Note: S: pt stated he was feeling better this afternoon and that he was able to get some sleep. O: pt was seen in his room and was upright in his chair. He completed sit to stand Ind and completed transfer apprx 15 ft with use of walker needing cues to use R affected LE. He was transferred downstairs the rest of way in w/c. He completed another transfer approx 12 ft to mat table and completed bed mobility with mod Ind. He completed Ue exercise with GTB in all planes x25 to increase strength to assist with postural transitions. He completed transfer upstairs with use of walker, taking no breaks. He was left on EOB per his request and nursing notified of his return. A: pt needs to continue to work on knee ext while in bed & was educated on doing quad sets to assist with this. He did much better this afternoon as his pain appeared to be more under control. P: continue per pOC.
--- NOTE | 2017-12-07 15:58 | PT.PROG ---
Progress Note Progress Note: S> Patient stated that he is still hurting, however not as bad as this morning. O. Patient was wheeled to the therapy gym where he had heat to his knee and then performed heel slides, quad sets, ankle pumps all x 10. Patient then ambulated 175 feet back to his room where he was left with alarm and call light. A. Patient tolerated therapy poor, he continues to have quad insufficiency and struggle with pain. Patient would continue to benefit from skilled therapy to increase strength and endurance at this time. P. Continue POC.
[2017-12-07] MEDS: Mirtazapine Tab 15 MG TAB PO SCH (20:15)
[2017-12-07] MEDS: CELECOXIB 200 MG CAPSULE PO SCH (20:15)
[2017-12-08] MEDS: oxyCODONE IR Tab 5 MG TAB PO PRN ×4 (00:38→18:16)
[2017-12-08] MEDS: LEVOTHYROXINE 75 MCG TABLET PO SCH (04:37)
[2017-12-08 05:34] LABS: Hematocrit [HCT] 29.2 % (42.0-52.0); Hemoglobin [HGB] 9.6 g/dL (14.0-18.0); MEAN CORPUSCULAR HEMOGLOBIN 29.8 PG (27-31); MEAN CORPUSCULAR HGB CONC 32.9 g/dL (33-37); MEAN CORPUSCULAR VOLUME 90.7 FL (80-90); MEAN PLATELET VOLUME 9.5 FL (7.4-12.2); RED BLOOD COUNT 3.22 10^6/uL (4.70-6.10)
[2017-12-08 05:48] LABS: BLOOD UREA NITROGEN 7 mg/dL (7-22); BUN/CREATININE RATIO 11.66 (6-20)
[2017-12-08] MEDS: ALBUTEROL SULFATE 2.5 MG/3 ML NEB SCH ×2 (06:18→19:18)
[2017-12-08] MEDS: CELECOXIB 200 MG CAPSULE PO SCH ×2 (08:14→20:18)
[2017-12-08] MEDS: POTASSIUM CHLORIDE 20 MEQ TAB PO SCH (08:15)
[2017-12-08] MEDS: GABAPENTIN 300 MG CAPSULE PO SCH ×3 (08:15→20:17)
[2017-12-08] MEDS: CYCLOBENZAPRINE 10 MG TABLET PO SCH ×2 (08:15→20:18)
[2017-12-08] MEDS: NICOTINE 21 MG /DAY PATCH TRANSDERM SCH (08:15)
[2017-12-08] MEDS: ENOXAPARIN SODIUM 30 MG/0.3 ML SYRINGE SUBCUT SCH (08:15)
[2017-12-08] MEDS: DOCUSATE 100 MG CAPSULE PO SCH ×2 (08:15→20:18)
[2017-12-08] MEDS: HYDROcodone-APAP 10 MG-325 MG TABLET PO PRN ×2 (08:20→20:18)
--- NOTE | 2017-12-08 08:31 | ORTHO.PROG ---
Last Taken Vital Signs: Vital Signs - Last Taken Temperature 97.9 F 12/08/17 07:14 Pulse Rate 92 12/08/17 07:14 Respiratory Rate 20 12/08/17 07:14 Blood Pressure 135/86 12/08/17 07:14 Pulse Ox 90 12/08/17 07:14 Subjective: Patient notes to be doing well this morning. Objective: Examination shows that the patient's dressing is in place is no active bleeding around the dressing. This is stuck down up appropriately. Motor and sensory exam in the lower extremity is good patient has some fluctuance in the subcutaneous tissue and does have an effusion to the knee. There is a mild bruising ecchymosis type changes about the knee. Motor and sensory exam is nonfocal otherwise. Laboratory Results 12/08/17 12/08/17 Range/Units 04:40 04:40 WBC 7.96 (4.8-10.8) 10^3/uL RBC 3.22 L (4.70-6.10) 10^6/uL Hgb 9.6 L (14.0-18.0) g/dL Hct 29.2 L (42.0-52.0) % MCV 90.7 H (80-90) FL MCH 29.8 (27-31) PG MCHC 32.9 L (33-37) g/dL RDW Std Deviation 45.1 (39-50) fL RDW Coeff of Mansi 14.2 (11.5-14.5) % Plt Count 158 (140-350) 10*3/uL MPV 9.5 (7.4-12.2) FL Sodium 137 (135-145) meq/L Potassium 3.8 (3.8-5.2) meq/L Chloride 103 (98-112) meq/L Carbon Dioxide 27 (23-33) meq/L Anion Gap 7 (5-20) BUN 7 (7-22) mg/dL Creatinine 0.6 L (0.70-1.50) mg/dL Estimated GFR > 60 (>60 ml/min/1.73m(2)) BUN/Creatinine Ratio 11.66 (6-20) Glucose 101 (78-110) mg/dL Calculated Osmolality 281.0 (267-292) mOsm/kg Calcium 8.2 L (8.7-10.7) mg/dL Vital Signs (24 hrs) Temp Pulse Pulse Pulse Resp BP BP 12/08/17 07:14 97.9 F 92 20 135/86 12/08/17 06:19 86 18 12/08/17 06:18 86 18 12/08/17 04:38 99.0 F 105 H 16 119/82 12/08/17 03:58 12/08/17 01:00 98 F 100 20 125/79 12/07/17 21:00 98.1 F 88 138/83 12/07/17 18:59 80 18 12/07/17 18:42 108 H 18 12/07/17 18:41 108 H 18 12/07/17 16:37 97.8 F 79 22 124/79 12/07/17 11:54 98.1 F 93 18 140/84 Pulse Ox 12/08/17 07:14 90 12/08/17 06:19 12/08/17 06:18 90 12/08/17 04:38 90 12/08/17 03:58 90 12/08/17 01:00 90 12/07/17 21:00 91 12/07/17 18:59 12/07/17 18:42 93 12/07/17 18:41 92 12/07/17 16:37 90 12/07/17 11:54 91 Assessment: Right total knee replacement Anemia postoperative Plan: Patient will continue with physical therapy of the current time we will reassess later in the day and tomorrow morning to see if he may be a candidate to go home and continue outpatient therapy. He'll continue with the current plan with DVT prophylaxis pain control ice elevation.
--- NOTE | 2017-12-08 10:36 | OTI REPORT ---
Thank you for the referral of Joselito Sampson. He was seen on 12/06/17 for an occupational therapy inpatient evaluation. SUBJECTIVE: The patient is a 57-year-old male who states that he lives in a trailer home with a friend in [place]. He states that his friend does have schizophrenia and sometimes she may not be able to help. He reports that prior to admission he was independent with all activities of daily living and functional tasks. He does drive and gets around his home. He does have four steps going into the trailer home. He does have a higher toilet and a shower chair that he sits on if necessary. The patient says that he has rugs throughout his entire home as this is his carpet. He states his floor underneath is not good enough to just use and he would like to have his throw rugs on the floor. PAST MEDICAL HISTORY: Past medical history can be found in the patient's medical record. OBJECTIVE FINDINGS: Activities of daily living: The patient was able to don lower extremity dressing independently without assistive devices. The patient did demonstrate pretty extreme impulsivity and had difficulty following through with instructions without almost tipping over in his walker. We tried doing a toilet transfer and hygiene activities and he does demonstrate a lot of impulsivity with ambulation in between activities, especially with turning. ASSESSMENT: The patient was walking into his walker between activities and needs to slow down. The patient may benefit from a walker tray; we will continue to assess this. Problem List: Decreased safety Decreased balance Impulsivity Short-Term Goals: To be met by discharge from inpatient: Patient will be able to obtain clothes from closet and dress self independently without any safety difficulties. Patient will be able to complete a toilet transfer independently. Patient will be able to complete a shower transfer independently. Long-Term Goals: To be met following discharge from inpatient: Patient will be able to go home, demonstrating safety and independence with all ADLs and functional activities. TREATMENT PLAN: Patient will be seen for one more session to go over obtaining clothes with safety. INITIAL TREATMENT: Treatment today consisted of the initial evaluation activities only. RENETTA
--- NOTE | 2017-12-08 11:19 | PT.PROG ---
Progress Note Progress Note: S. Patient stated that he is feeling better this morning compared to yesterday. O. Patient ambulated 175 to the therapy gym where he had heat and performed heel slides, quad sets, ankle pumps, seated long arc quads with 10 second holds , marches, heel toe raises, sit to stands, standing weight shifts, hip flexion/ extension, and terminal knee extension, box step ups with #2 box all x 10. Patient then ambulated 175 feet back to his room where he was left at the edge of bed with alarm and call light. A. Patient tolerated therapy fair this morning, he was able to perform more exercises today compared to previous treatments. Patient continues to struggle with quad strength and mobility. Patient would continue to benefit from skilled therapy to increase strength and ROM. Patient is scheduled to perform stair training this Afternoon. P. Continue POC>
--- NOTE | 2017-12-08 12:00 | OT.PROG ---
Progress Note Progress Note: S: pt reported that he had a much better night. He stated that he has 3 steps into his house. O: pt was seen in his room in the am. He completed bed mobility with mod Ind as it did take him longer. He completed donning of LE slipper/socks Ind. He completed one sit to stand INd and had to remain upright for a couple minutes as he was feeling dizzy. He then transferred entire way to therapy using walker and taking no breaks. Once he arrived in therapy he did need min A with Affected leg into bed. He received moist heat and PT took over therapy at this point. A: pt needs to continue to ambulate to increase overall function & continue to work on quad control and ext of knee. P: Continue per POC.
--- NOTE | 2017-12-08 14:56 | PT.PROG ---
Progress Note Progress Note: S. Patient stated that he is feeling better today, he feels that he is ready to go home. O. Patient ambulated 175 feet to the therapy gym where he had heat to his knee and performed, heel slides, quad sets, ankle pumps (green), short arc quads, straight leg raises, seated long arc quads, and sit to stands all x 10. Patient then ascended and descended 5 stairs and ambulated 175 feet back to his room where he was left with alarm and call light. A. Patient tolerated therapy well, he was able to perform all therapy with no increase in pain or problems. He would continue to benefit from Outpatient therapy however has met all goals at this time. P. Continue until Discharge.
--- NOTE | 2017-12-08 15:31 | PDOC(PROG) ---
Date of Service: 12/08/17 Time of Service: 15:28 Interval History: No chest pain, shortness breath, nausea or vomiting. There was some talk that the patient may go home today, but in discussion with Dr. Miller, he is worried that there could be a developing hematoma and would like to watch for 1 more day to make sure there is no evidence of expanding hematoma in relation to the surgery. We'll stop Lovenox for now. The patient states his knee pain is much better controlled. He is having bowel movements. Objective : Data - Labs CBC and BMP: 12/08/17 04:40 12/08/17 04:40 Objective : Exam - General General Appearance: No Acute Distress, Cooperative - Head Head Exam: Normal Inspection, Normocephalic, Atraumatic - Eye Eye Exam: No Scleral Icterus - ENT ENT Exam: Mucous Membranes Moist - Respiratory Respiratory Exam: Clear to Auscultation - Bilaterally, Breathing Non Labored - Cardiovascular Cardiovascular Exam: RRR, No Murmur, No Clicks, No Gallops, No Rubs, No JVD - GI/Abdominal GI/Abdominal Exam: Normal Bowel Sounds, Non Tender, Non Distended, Soft - Extremities Extremities Exam: No Clubbing Present, No Cyanosis Present, Joint Swelling ( Around the right knee, expected postoperative from knee surgery. Somewhat hyperemic. Could be hematoma but may just be hyperemic response.) - Neurological Neurological Exam: Alert, Oriented x 3, No Facial Droop, Speech Intact / Clear, Moves All Extremities Equally - Psychiatric Psychiatric Exam: Normal Affect, Normal Mood Assessment and Plan - Patient Problems (1) COPD (chronic obstructive pulmonary disease) Current Visit: Yes Status: Acute Code(s): J44.9 - Chronic obstructive pulmonary disease, unspecified Qualifiers: COPD type: emphysema Emphysema type: unspecified Qualified Code(s): J43.9 - Emphysema, unspecified (2) Hypothyroidism Current Visit: Yes Status: Acute Code(s): E03.9 - Hypothyroidism, unspecified Qualifiers: Hypothyroidism type: acquired Qualified Code(s): E03.9 - Hypothyroidism, unspecified (3) Arthritis of right knee Current Visit: Yes Status: Acute Code(s): M17.11 - Unilateral primary osteoarthritis, right knee (4) Status post knee surgery Current Visit: Yes Status: Acute Code(s): Z98.890 - Other specified postprocedural states (5) Hepatitis C Current Visit: Yes Status: Acute Code(s): B19.20 - Unspecified viral hepatitis C without hepatic coma Qualifiers: Viral hepatitis chronicity: chronic Hepatic coma status: without hepatic coma Qualified Code(s): B18.2 - Chronic viral hepatitis C (6) Hypokalemia Current Visit: Yes Status: Resolved Code(s): E87.6 - Hypokalemia - Assessment / Plan Additional Assessment/Plan Details: In terms of his COPD, the patient has no evidence of acute exacerbation. He is doing well with nicotine patch and would like a prescription when he goes home. I agree with Dr. Miller. If this is a developing hematoma be better to have that figured out here prior to discharge. Stop Lovenox. Check CBC in a.m. PT and OT to continue.
[2017-12-08] MEDS: Mirtazapine Tab 15 MG TAB PO SCH (20:17)
[2017-12-09] MEDS: oxyCODONE IR Tab 5 MG TAB PO PRN ×3 (02:16→14:12)
[2017-12-09] MEDS: HYDROcodone-APAP 10 MG-325 MG TABLET PO PRN ×4 (02:17→14:15)
[2017-12-09 04:57] LABS: Hematocrit [HCT] 29.9 % (42.0-52.0); Hemoglobin [HGB] 10.1 g/dL (14.0-18.0); MEAN CORPUSCULAR HEMOGLOBIN 30.8 PG (27-31); MEAN CORPUSCULAR HGB CONC 33.8 g/dL (33-37); MEAN CORPUSCULAR VOLUME 91.2 FL (80-90); RED BLOOD COUNT 3.28 10^6/uL (4.70-6.10)
[2017-12-09] MEDS: LEVOTHYROXINE 75 MCG TABLET PO SCH (05:33)
[2017-12-09] MEDS: ALBUTEROL SULFATE 2.5 MG/3 ML NEB SCH (06:22)
[2017-12-09] MEDS: GABAPENTIN 300 MG CAPSULE PO SCH (08:05)
[2017-12-09] MEDS: NICOTINE 21 MG /DAY PATCH TRANSDERM SCH (08:05)
[2017-12-09] MEDS: CYCLOBENZAPRINE 10 MG TABLET PO SCH (08:05)
[2017-12-09] MEDS: CELECOXIB 200 MG CAPSULE PO SCH (08:05)
[2017-12-09] MEDS: POTASSIUM CHLORIDE 20 MEQ TAB PO SCH (08:06)
[2017-12-09] MEDS: DOCUSATE 100 MG CAPSULE PO SCH (08:06)
[2017-12-09 08:30] VITALS: RESP 20
--- NOTE | 2017-12-09 10:07 | OT.PROG ---
Progress Note Progress Note: S: Pt reports that he is feeling better and he still hopes to go home today. O: pt was seen in his room and was setting on EOB. Patient ambulated 175 to the therapy gym where he performed heel slides, quad sets, ankle pumps, seated long arc quads with 10 second holds, marches, heel toe raises, sit to stands, standing weight shifts, hip flexion/extension, and terminal knee extension, box step ups with #2 box & 3# all x 10. Patient then ambulated 175 feet back to his room where he was left at the edge of bed with alarm and call light. A: pt participated well and is gaining with quad control/strength. He completed all box step ups well with no safety difficulties. P: continue per POC.
--- NOTE | 2017-12-09 12:04 | ORTHO.PROG ---
Last Taken Vital Signs: Vital Signs - Last Taken Temperature 98.1 F 12/09/17 08:29 Pulse Rate 94 12/09/17 08:29 Respiratory Rate 20 12/09/17 08:29 Blood Pressure 112/74 12/09/17 08:29 Pulse Ox 89 12/09/17 08:29 Subjective: Patient doing well states his pain is well controlled on oral medication Objective: Patient's dressing was removed and a new [place] place was a little blood proximally but this looked old and no evidence of active infection no redness or erythema no active drainage 0-90 flexion with no drainage. Laboratory Results 12/09/17 Range/Units 04:40 WBC 7.37 (4.8-10.8) 10^3/uL RBC 3.28 L (4.70-6.10) 10^6/uL Hgb 10.1 L (14.0-18.0) g/dL Hct 29.9 L (42.0-52.0) % MCV 91.2 H (80-90) FL MCH 30.8 (27-31) PG MCHC 33.8 (33-37) g/dL RDW Std Deviation 45.0 (39-50) fL RDW Coeff of Mansi 14.2 (11.5-14.5) % Plt Count 199 (140-350) 10*3/uL MPV 9.0 (7.4-12.2) FL Vital Signs (24 hrs) Temp Pulse Pulse Resp BP Pulse Ox 12/09/17 08:29 98.1 F 94 20 112/74 89 12/09/17 06:23 75 18 12/09/17 06:22 75 18 92 12/09/17 04:48 97.4 F 81 18 108/77 90 12/09/17 04:14 92 12/09/17 01:00 97.5 F 82 18 111/67 90 12/08/17 20:48 99.0 F 109 H 18 120/86 90 12/08/17 19:19 89 16 93 12/08/17 19:18 88 16 92 12/08/17 16:41 99.1 F 102 H 20 126/88 90 12/08/17 12:47 98.3 F 92 20 122/72 90 Assessment: Right total knee replacement Anemia postoperatively which is stable Plan: Patient will continue with icing and oral pain medication as needed. He will be discharged home and continue with outpatient physical therapy beginning Monday. We discussed with the patient importance of DVT prophylaxis and he will continue to utilize pneumatics and aspirin 325 mg twice a day for the next couple weeks and then I think you go to 81 mg once a day. We discussed continuation of Lovenox into the 14 day period of time however based on the cost patient states he cannot afford this and will not by this medication in does not wish to do the self injections at home
[2017-12-09 13:26] VITALS: BP 121/67; TEMP 97.2; O2SAT 90
--- NOTE | 2017-12-09 13:35 | DCSUMMARY ---
Hospitalization Summary Admit Date: 12/05/2017 Discharge Date: 12/09/17 Primary Diagnosis:: status post total knee arthroplasty, right side Hospital Course: This very pleasant 49-year-old male with COPD, osteoarthritis, and terminal osteoarthritis on the right side, and he elected for total knee arthroplasty which was done by Dr. Miller on date of admission. Please see his surgical note for further details. Postoperatively, patient did very well from his knee replacement side of things. He did have some postoperative anemia but nothing that would require blood transfusion. He had what looked like a possible developing hyperemic response versus hematoma, so we watched him for next day, but his swelling in the right knee did go down. Lovenox was discontinued. The patient cannot afford it, did not want to do shots, and on top of that, there was concern that it could've been causing hematoma. He will go on aspirin for DVT prophylaxis and that was stressed with Dr. Miller. PT and OT went very well for the patient. His pain control was very good. Terms of his COPD, no evidence of exacerbation during the hospital stay. The patient's other medical problems stable throughout the hospital stay, and on the day of discharge he had no complaints of chest pain, shortness breath, nausea or vomiting, and his right knee pain is well controlled and he felt the swelling was down overnight after the cessation of Lovenox. On another note, the patient felt that he was tolerating the nicotine patch very well, is very dedicated to trying to quit smoking. He's very contemplative and is in the action stage, and he wants to continue nicotine patches so we sent a prescription down to his pharmacy in [place]. Assessment and Plan: 1. As per discharge assessments noted 2. Disposition: Patient is discharged home. 3. Condition on discharge, stable and improved. 4. Diet: regular diet 5. Activities: resume activities as per Dr. Miller's postoperative instructions 6. Follow-Up: 1. Dr. Hernandez 1-[address] Miller as scheduled Home Medications 3 Medication Instructions Recorded Confirmed Type Albuterol Neb Soln 0.021% 1 unit NEB BID unit 10/15/14 12/05/17 History Oxygen (O2) 1 l INH DAILY #2 unit 10/15/14 11/22/17 History Cyclobenzaprine HCl [Flexeril] 10 mg PO BID 11/11/14 12/06/17 History Albuterol Sulfate [Ventolin Hfa] 1 - 2 puff INH PRN puff 07/15/15 12/05/17 History Levothyroxine Sodium 1 tab PO DAILY tab 07/15/15 12/05/17 History Mirtazapine [Remeron] 1 tab PO QHS tab 07/15/15 12/05/17 History Gabapentin 1 tab PO TID tab 03/08/16 12/05/17 History meloxicam 7.5 mg tablet See Label Instructions PO QDAY PRN 10/05/17 12/05/17 Rx #60 tab hydrocodone 7.5 mg-acetaminophen 1 tab PO .HS PRN #30 tab 11/01/17 12/05/17 Rx 325 mg tablet HYDROcodone/APAP 10/325 Tab 1 - 2 tab PO Q6H PRN #40 tab 12/09/17 Rx [[place] 10/325 Tab] Nicotine 21mg Patch [Nicoderm CQ 1 patch TRANSDERM DAILY #30 patch 12/09/17 Rx 21mg Patch] Patient is also on aspirin 325 mg twice a day for the next 14 days. 8. Time, care, counseling and coordination of care for this discharge is less than 30 minutes. Exam - Vitals Vital Signs: Vital Signs Temperature 97.2 F Temperature Source Temporal Artery Scan Pulse Rate [Apical] 80 Pulse Rate [Pulse Oximeter] 100 Pulse Rate 75 Respiratory Rate 20 Blood Pressure [Left Arm] 121/67 Blood Pressure [Right Arm] 125/79 Blood Pressure 125/67 Pulse Ox 90 Oxygen Flow Rate 2 Oxygen Delivery Method Room Air Height 6 ft 4 in Weight 186 lb 14.4 oz - General General Appearance: No Acute Distress, Cooperative - Eye Eye Exam: POSITIVE: No Scleral Icterus - ENT ENT Exam: POSITIVE: Mucous Membranes Moist - Respiratory Respiratory Exam: POSITIVE: Clear to Auscultation - Bilaterally, Breathing Non Labored - Cardiovascular Cardiovascular Exam: POSITIVE: RRR, No Murmur, No Clicks, No Gallops, No Rubs, No JVD - GI/Abdominal GI/Abdominal Exam: POSITIVE: Normal Bowel Sounds, Non Tender, Non Distended, Soft - Extremities Extremities Exam: POSITIVE: No Clubbing Present, No Edema Present, No Cyanosis Present, Joint Swelling (right knee, improved, less hyperemic today) - Neurological Neurological Exam: POSITIVE: Alert, Oriented x 3, No Facial Droop, Speech Intact / Clear - Psychiatric Psychiatric Exam: POSITIVE: Normal Affect, Normal Mood Data Peritnent Studies: 12/08/17 12/09/17 04:40 04:40 WBC 7.37 Hgb 10.1 L Hct 29.9 L Plt Count 199 Sodium 137 Potassium 3.8 Chloride 103 Carbon Dioxide 27 Anion Gap 7 BUN 7 Creatinine 0.6 L Estimated GFR > 60 BUN/Creatinine Ratio 11.66 Glucose 101 Calculated Osmolality 281.0 Calcium 8.2 L Patient Problems - Patient Problem List (1) Status post knee surgery Current Visit: Yes Status: Acute Code(s): Z98.890 - Other specified postprocedural states Category: Medical (2) COPD (chronic obstructive pulmonary disease) Current Visit: Yes Status: Acute Code(s): J44.9 - Chronic obstructive pulmonary disease, unspecified Qualifiers: COPD type: emphysema Emphysema type: unspecified Qualified Code(s): J43.9 - Emphysema, unspecified Category: Medical (3) Hypothyroidism Current Visit: Yes Status: Acute Code(s): E03.9 - Hypothyroidism, unspecified Qualifiers: Hypothyroidism type: acquired Qualified Code(s): E03.9 - Hypothyroidism, unspecified Category: Medical (4) Arthritis of right knee Current Visit: Yes Status: Acute Code(s): M17.11 - Unilateral primary osteoarthritis, right knee Category: Medical (5) Hepatitis C Current Visit: Yes Status: Acute Code(s): B19.20 - Unspecified viral hepatitis C without hepatic coma Qualifiers: Viral hepatitis chronicity: chronic Hepatic coma status: without hepatic coma Qualified Code(s): B18.2 - Chronic viral hepatitis C Category: Medical (6) Hypokalemia Current Visit: Yes Status: Resolved Code(s): E87.6 - Hypokalemia Category : Medical
== END 2017-12-09 14:17 | disposition home or self-care (01) | DRG 470 ==
LOC: OPS 05:35 → MED/SURG 12:54
PROVIDERS: ADMIT Orthopaedic Surgery; ATTEND Orthopaedic Surgery